=== PATIENT | male | born 1930 | race Caucasian/White ===

== ENCOUNTER 2018-08-02 22:20 | Inpatient (IN) | payer MEDICARE ==
[2018-08-02] MEDS ORDERED: Water For Inject, Bacteriostat 30 ML ONE (23:56)
[2018-08-02] MEDS ORDERED: methylPREDNISolone Sod Succ/PF 125 MG/2 ML VIAL ONE (23:56)
[2018-08-03] MEDS ORDERED: Acetaminophen 325 MG TAB PO PRN (03:07)
[2018-08-03] MEDS ORDERED: Ondansetron PF 4 MG/2 ML Vial IVP PRN (03:07)
[2018-08-03] MEDS ORDERED: Ondansetron ODT 4 MG TAB SL PRN (03:07)
[2018-08-03] MEDS: cefTRIAXone\\ROCEPHIN 1 GM in Sodium Chloride 0.9% 100 ML IVPB SCH (03:28)
[2018-08-03] MEDS: Sodium Chloride 0.9% 1,000 ML IV SCH ×4 (03:28→21:31)
[2018-08-03 03:41] VITALS: BMI 29.5
[2018-08-03] MEDS ORDERED: Non-Formulary Item 1 EACH (Fluticasone/Salmeterol [Advair Diskus 250/50] 1 EACH) IH PRN (04:00)
[2018-08-03] MEDS ORDERED: Bisacodyl 5 MG TAB PO PRN (04:05)
[2018-08-03] MEDS ORDERED: Senokot S 8.6-50 MG TAB PO PRN (04:05)
[2018-08-03] MEDS ORDERED: Guaifenesin DM 100-10/5 ML UDCUP PO PRN (04:05)
[2018-08-03] MEDS ORDERED: Mometasone/Formoterol 120 PUFF INHALER INH PRN (04:11)
[2018-08-03] MEDS: methylPREDNISolone Sod Succ/PF 125 MG/2 ML VIAL IVP SCH ×2 (05:35→11:51)
--- NOTE | 2018-08-03 05:41 | HP ---
CHIEF COMPLAINT: Cough. HISTORY OF PRESENT ILLNESS: The patient is an 88-year-old male with past medical history of coronary artery disease, status post AICD; benign prostatic hypertrophy; hypertension; prostate CA, status post radiation, treated in 2001; asthma, presenting with productive cough for 1 week. Per the patient, he has been having productive cough for 1 week which has now worsened. The patient states that he had sputum that was thick and was stuck in his throat and he had to cough it up and he kept coughing and his cough was so severe that he felt that he had pulled his abdominal hernia with cough. The patient states that he reached out to his brush cleaner to get refill of antibiotics and prednisone, but he was not successful in trying to get the medication refilled. Therefore, the patient states that pain has become very worse and he can hear himself wheezing and that prompted the ED visit. Per the who was by the bedside, she stated that the patient's temperature was high at 103 that was taken orally and the patient was "not feeling well at all." The patient endorses fever, cough with productive sputum, bilateral lower extremity edema, generalized weakness, but denies chest pain, palpitations, dizziness, nausea, vomiting, dysuria, hematuria, hematochezia, melena. REVIEW OF SYSTEMS: Positive for fever, chills, generalized weakness, dyspnea on exertion, bilateral lower extremity edema, shortness of breath. Otherwise as documented in the HPI. All other systems were reviewed and are negative. PAST MEDICAL HISTORY: Coronary artery disease, status post CABG, status post AICD; hypertension; BPH; prostate cancer, status post radiation in 2001; asthma. FAMILY HISTORY: Reviewed and noncontributory to this visit. PAST SURGICAL HISTORY: Colostomy with reversal; back surgery; CABG, one vessel. PSYCHIATRIC HISTORY: No previous psych history. No history of suicidal ideation. SOCIAL HISTORY: The patient drinks socially. The patient denies illicit drug use. The patient is a former drug user of tobacco. The patient quit more than 10 years ago. ALLERGIES: NO KNOWN DRUG ALLERGIES. CURRENT MEDICATIONS: The patient takes; 1. Allopurinol 300 mg p.o. daily. 2. Glucosamine 500 mg tablet. 3. Ubidecarenone 100 mg. 4. Atorvastatin 80 mg. 5. Calcium carbonate 600 mg tablet. 6. Carvedilol 6.25 mg tablet. 7. Vitamin D3 at 1000 daily. 8. Plavix 75 mg. 9. Fish oil. 10. Advair. 11. Lactobacillus. 12. Magnesium oxide. 13. Sotalol 80 mg tablet. 14. Tamsulosin 0.4 mg. PHYSICAL EXAMINATION: VITAL SIGNS: Blood pressure 101/49, pulse 71, respiratory rate of 20, temperature of 100.0, oxygen saturation is 95% on 2 L. GENERAL: The patient is lying in bed with 2 L of nasal cannula in place. The patient is not in any acute distress. The patient is wheezing. HEENT: Normocephalic and atraumatic. Pupils are equally round and reactive to light. Extraocular movements are intact. No scleral icterus. No conjunctival pallor. Mucous membranes are dry. The patient has 2 L of nasal cannula in his nares. NECK: No JVD can be appreciated. The patient has full range of motion, supple. Trachea is midline. LUNGS: The patient has bilateral anterior lung wheezes at the anterior lung nuñez. On the posterior nuñez, there are crackles that can be heard at the lung bases , at the posterior lungs. CARDIAC: Positive S1 and S2. Regular rate and rhythm. No murmurs, no gallops , no rubs appreciated. ABDOMEN: Obese. Abdomen is soft, nontender, nondistended. No palpable masses. EXTREMITIES: Lower extremities, the patient had bilateral 2+ pitting edema at the lower extremities bilaterally. There is some erythema noted at the right lower extremity. The patient has good strength in the lower extremities, however, per the , the patient is not able to ambulate properly. Upper extremities, the patient 5/5 upper extremity strength and good pulses bilaterally in the upper extremities. NEUROLOGIC: Cranial nerves 2 through 12 grossly intact. No neurologic deficits noted. SKIN: Warm, dry, and intact. PSYCHIATRIC: The patient is alert and oriented x3. Normal affect. IMAGING STUDIES: Radiographs: Chest x-ray that was done showed patchy infiltrates, left lingular lobe pneumothorax, less than 10% on the right. EMERGENCY DEPARTMENT COURSE: The patient was given Zosyn, DuoNeb, Tylenol, Levaquin, and normal saline. LABORATORY DATA: WBC is 11.4, hemoglobin is 11.0, hematocrit is 33.3, RDW is 14.6, platelet count is 138. Sodium is 137, potassium is 4.6, chloride is 105, anion gap of 13, BUN is 41, creatinine is 2.10. AST 14, ALT is 11, total bili is 1.7. ASSESSMENT AND PLAN: This is an 88-year-old male, being admitted for: 1.community-acquired pneumonia. At this point, the patient has been started on antibiotics. We will continue patient on antibiotics. We will continue patient on Tylenol p.r.n. for fever. We will give the patient DuoNeb treatments and we will also give the patient Solu-Medrol since the patient is wheezing bilaterally. 2. 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 The patient has bilateral lower extremity edema. At this point, we will hold off all fluids and we will continue to treat patient's underlying pneumonia which has caused the patient to go into congestive heart failure exacerbation. The patient will benefit from Lasix , however, due to patient's creatinine which is elevated from baseline of 1 to 2.0 , we will hold off all diuresis at this time. 3. Acute on chronic kidney disease likely due to dehydration and intrinsic kidney disease. We have consulted Nephrology at this time. We will follow up with Nephrology regarding the recommendation. We have ordered renal panel, we will follow up with the results. 4. Pneumothorax: will follow up morning xray. 5. History of BPH. We will continue the patient on home medications. 4. Hypertension, currently controlled. We will continue the patient on home medications. 6. History of coronary artery disease. We will continue the patient on his home medications. 7. History of asthma. At this point, the patient is wheezing bilaterally. We will start the patient on Solu-Medrol. We will continue DuoNebs. We will monitor the patient. We have consulted Pulmonology. We will follow up with their recommendations. 8. Gastrointestinal and deep venous thrombosis prophylaxis. Job ID: [id number] [facility]
[2018-08-03] MEDS: Clopidogrel Bisulfate 75 MG TAB PO SCH (09:34)
[2018-08-03] MEDS: Fish Oil 1,000 MG CAP PO SCH (09:34)
[2018-08-03] MEDS: Atorvastatin Calcium 40 MG TAB PO SCH (09:34)
[2018-08-03] MEDS: Sotalol HCl 80 MG TAB PO SCH ×2 (09:34→21:25)
[2018-08-03] MEDS: Calcium Carbonate 600 MG TAB PO SCH (09:35)
[2018-08-03] MEDS: Heparin 5,000 UNITS/ML VIAL SC SCH ×2 (09:35→21:26)
[2018-08-03] MEDS: Carvedilol 6.25 MG TAB PO SCH ×2 (09:35→21:25)
[2018-08-03] MEDS: Magnesium Oxide 400 MG TAB PO SCH (09:35)
[2018-08-03] MEDS: Tamsulosin HCl 0.4 MG CAP PO SCH (09:35)
[2018-08-03] MEDS: Famotidine/PF 20 mg/2ml Vial SLOW IVP SCH ×2 (09:35→21:26)
[2018-08-03] MEDS: Famotidine 20 MG TAB PO SCH ×2 (09:35→21:25)
[2018-08-03] MEDS: Lactinex Tablet PO SCH (09:36)
[2018-08-03] MEDS: Azithromycin 500 MG in Sodium Chloride 0.9% 250 ML 250 ML IVPB SCH (09:36)
--- NOTE | 2018-08-03 10:01 | PQF ---
CLINICAL DOCUMENTATION IMPROVEMENT CLARIFICATION FORM: ICD-10 Updated PLEASE DO AN ADDENDUM TO THE PROGRESS NOTE WITH ANY DOCUMENTATION UPDATES OR ADDITIONS AND CARRY THROUGH TO DC SUMMARY. THANK YOU. DATE: 08/03/18 ATTN: DR. NIELSEN Please exercise your independent, professional judgment in responding to the clarification form. Clinical indicators are provided on the bottom of this form for your review Please check appropriate box(s) to clarify if the following diagnosis has been ruled in or ruled out: "SEPSIS" [ ] Ruled in diagnosis [ ] Continue to treat [ ] Resolved [ ] Ruled out diagnosis [ ] Cannot rule out diagnosis [ ] Other diagnosis [ ] Unable to determine In addition, please specify: Present on Admission (POA): [ ] Yes [ ] No [ ] Unable to determine For continuity of documentation, please document condition throughout progress notes and discharge summary. Thank You. CLINICAL INDICATORS - SIGNS / SYMPTOMS / LABS ER NOTE: "SEPSIS" " REPORTS PT. INITIALLY HAD A TEMP OF 103 AND WAS PALE WHITE." (ER NOTE) RR 22 RISKS: PNEUMONIA TREATMENT: IV VANCOMYCIN (ER) IV METHYLPREDISOLONE (ER-PRESENT) IV FLUIDS (ER-PRESENT) IV ROCEPHIN (STARTED 08/03) IV ZITHROMAX (STARTED 08/03) (This form is maintained as a part of the permanent medical record) 2014 [employer] All Rights Reserved KRYSTAL [email or web address] Office: [phone] MTDD
--- NOTE | 2018-08-03 15:08 | PDOC.PN ---
- Subjective Encounter Start Date: 08/03/18 Encounter Start Time: 08:20 Pt seen for followup re: sepsis. Reports cough, clear sputum. No fevers. - Objective Resuscitation Status - Order Detail: 08/03/18 04:05 Resuscitation Status Routine Resuscitation Status: FULL: Full Resuscitation MAR Reviewed: Yes Vital Signs & Weight: Vital Signs (12 hours) Temp Pulse Resp BP Pulse Ox 08/03/18 12:46 97.5 F L 70 16 115/55 L 94 L 08/03/18 09:34 70 08/03/18 08:29 97.2 F L 70 17 128/65 93 L 08/03/18 08:00 94 L 08/03/18 07:11 69 16 93 L 08/03/18 05:05 97.6 F 70 18 120/61 94 L Weight Admit Weight 205 lb 8 oz Weight 205 lb 8 oz I&O: 08/02/18 08/03/18 08/04/18 06:59 06:59 06:59 Intake Total 375 Output Total 625 Balance -250 EKG Reviewed by me: Yes (Tele: NSR) Phys Exam - Physical Examination Constitutional: NAD HEENT: moist MMs, sclera anicteric, oral pharynx no lesions, 2+ tonsils Neck: no nodes, no JVD, supple, full ROM Respiratory: wheezing present Cardiovascular: RRR, no rub S1, S2 Gastrointestinal: soft, non-tender, no distention, positive bowel sounds Neurological: moves all 4 limbs Psychiatric: normal affect Deviation from normal: Oriented to person and place, not to time Dx/Plan (1) Sepsis Code(s): A41.9 - SEPSIS, UNSPECIFIED ORGANISM Status: Acute Comment: likely secondary to acute bronchitis. No clear evidence of pneumonia. Present on admission. (2) Acute bronchitis Code(s): J20.9 - ACUTE BRONCHITIS, UNSPECIFIED Status: Chronic Comment: continue antibiotics as below (3) NATASHA (acute kidney injury) Code(s): N17.9 - ACUTE KIDNEY FAILURE, UNSPECIFIED Status: Chronic Comment: provide gentle hydration, recheck labs (4) HTN (hypertension) Code(s): I10 - ESSENTIAL (PRIMARY) HYPERTENSION Status: Chronic Comment: controlled (5) BPH (benign prostatic hyperplasia) Code(s): N40.0 - BENIGN PROSTATIC HYPERPLASIA WITHOUT LOWER URINRY TRACT SYMP Status: Chronic Comment: stable (6) CAD (coronary artery disease) Code(s): I25.10 - ATHSCL HEART DISEASE OF [place] CORONARY ARTERY W/O ANG PCTRS Status: Chronic Comment: stable - Plan * . Review of Systems - Review of Systems Constitutional: weakness. negative: fever, chills, sweats, malaise Respiratory: Cough, Sputum. negative: Shortness of Breath, SOB with Excertion, Pleuritic Pain, Wheezing Cardiovascular: negative: chest pain, palpitations, orthopnea, paroxysmal nocturnal dyspnea, edema, light headedness Gastrointestinal: negative: Nausea, Vomiting, Abdominal Pain, Diarrhea, Constipation, Melena, Hematochezia Genitourinary: negative: Dysuria, Frequency, Incontinence, Hematuria, Retention Musculoskeletal: negative: Neck Pain, Shoulder Pain, Arm Pain, Back Pain, Hand Pain, Leg Pain, Foot Pain - Medications/Allergies Allergies/Adverse Reactions: Allergies Allergy/AdvReac Type Severity Reaction Status Date / Time pecan nut Allergy Verified 08/03/18 02:22 ragweed pollen Allergy Verified 08/03/18 02:22 Medications: Current Medications Acidophilus (Floranex) 1 tab PO DAILY [facility] Last Admin: 08/03/18 09:36 Dose: 1 tab Albuterol/Ipratropium (Duoneb) 3 ml NEB [id number] [facility] Last Admin: 08/03/18 13:45 Dose: 3 ml Atorvastatin Calcium (Lipitor) 80 mg PO DAILY [facility] Last Admin: 08/03/18 09:34 Dose: 80 mg Bisacodyl (Dulcolax) 10 mg PO DAILYPRN PRN PRN Reason: Constipation Calcium Carbonate (Caltrate) 600 mg PO DAILY [facility] Last Admin: 08/03/18 09:35 Dose: 600 mg Carvedilol (Coreg) 6.25 mg PO BID [facility] Last Admin: 08/03/18 09:35 Dose: 6.25 mg Cholecalciferol (Vitamin D3) 1,000 units PO DAILY [facility] Last Admin: 08/03/18 09:35 Dose: 1,000 units Clopidogrel Bisulfate (Plavix) 75 mg PO DAILY [facility] Last Admin: 08/03/18 09:34 Dose: 75 mg Famotidine (Pepcid) 20 mg SLOW IVP Q12HR [facility] Last Admin: 08/03/18 09:35 Dose: 20 mg Famotidine (Pepcid) 20 mg PO BID [facility] Last Admin: 08/03/18 09:35 Dose: 20 mg Fish Oil (Fish Oil) 1,000 mg PO DAILY [facility] Last Admin: 08/03/18 09:34 Dose: 1,000 mg Guaifenesin/Dextromethorphan (Robitussin Dm) 15 ml PO Q4H PRN PRN Reason: Cough Heparin Sodium (Porcine) (Heparin) 5,000 units SC BID [facility] Last Admin: 08/03/18 09:35 Dose: 5,000 units Ceftriaxone Sodium 1 gm/ (Sodium Chloride) 100 mls @ 200 mls/hr IVPB Q24HR [facility] Last Admin: 08/03/18 03:28 Dose: 100 mls Azithromycin 500 mg/ Sodium (Chloride) 250 mls @ 250 mls/hr IVPB DAILY [facility] Last Admin: 08/03/18 09:36 Dose: 250 mls Magnesium Oxide (Magnesium Oxide) 400 mg PO DAILY [facility] Last Admin: 08/03/18 09:35 Dose: 400 mg Methylprednisolone Sodium Succinate (Solu-Medrol) 80 mg IVP Q6HR [facility] Last Admin: 08/03/18 11:51 Dose: 80 mg Miscellaneous Medication (Pharmacy To Dose) 1 each IVPB ONE PRN PRN Reason: ROCEPHIN/AZITHROMYCIN Pharmacy Stop: 08/03/18 23:59 Mometasone Furoate/Formoterol Fumar (Dulera 200 Mcg/5 Mcg Inhaler) 2 puff INH BIDPRN PRN PRN Reason: SOB &/or Wheezing Pneumococcal 13-Valent Conj Vacc (Prevnar) 0.5 ml IM .ONCE ONE Stop: 08/04/18 09:01 Senna/Docusate Sodium (Senokot S) 2 tab PO BIDPRN PRN PRN Reason: Constipation Sodium Chloride (Flush - Normal Saline) 10 ml IVF Q12HR [facility] Last Admin: 08/03/18 09:36 Dose: Not Given Sodium Chloride (Flush - Normal Saline) 10 ml IVF PRN PRN PRN Reason: Saline Flush Sotalol HCl (Betapace) 80 mg PO BID [facility] Last Admin: 08/03/18 09:34 Dose: 80 mg Tamsulosin HCl (Flomax) 0.4 mg PO DAILY [facility] Last Admin: 08/03/18 09:35 Dose: 0.4 mg
--- NOTE | 2018-08-03 20:54 | CON ---
DATE OF CONSULTATION: 08/03/2018 This consultation encompassed 70 minutes of time including more than half of that time spent at the patient's bedside and/or on the patient's unit in the hospital. REASON FOR CONSULTATION: Pneumonia. HISTORY OF PRESENT ILLNESS: Mr. Javier is an 88-year-old male, who is a patient of my partner, Dr. Tracey. He began having cough and congestion about 5 days ago. He presented to an [facility] emergency room yesterday, and I am told that his temperature was at 103. He had been producing mucoid secretions. He was put on antibiotics, IV fluids, breathing treatments, and states that he feels better this morning. His history and physical states that he had an infiltrate on his x-ray and a pneumothorax. I see neither on his x-ray and that is supported by the radiologist's report. PAST MEDICAL HISTORY: 1. Coronary artery disease. 2. Chronic obstructive pulmonary disease. 3. PHI, requiring CPAP. 4. AICD placement. 5. Hypertension. 6. Coronary artery bypass grafting surgery. 7. Prostate cancer. 8. Radiation treatment for prostate cancer. PAST SURGICAL HISTORY: 1. Colostomy with reversal. 2. CABG. 3. Back surgery. FAMILY MEDICAL HISTORY: Unremarkable. SOCIAL HISTORY: Drinks socially. He quit smoking more than 10 years ago. Lives at home with his . ALLERGIES: NONE. MEDICATIONS: Prior to admission, he had just called the office for a prednisone taper, but I do not think he was taking that. He has not been taking any antibiotics as an outpatient. 1. Allopurinol 300 mg daily. 2. Glucosamine 500 mg daily. 3. Ubidecarenone 100 mg daily. 4. Atorvastatin 80 mg daily. 5. Calcium carbonate 600 mg daily. 6. Carvedilol 6.25 mg b.i.d. 7. Vitamin daily. 8. Plavix 75 mg daily. 9. Advair 250 mcg 1 puff twice daily. 10. Lactobacillus. 11. Magnesium oxide. 12. Sotalol 80 mg twice daily. 13. Tamsulosin 0.4 mg daily. REVIEW OF SYSTEMS: Twelve-point review of systems otherwise negative. PHYSICAL EXAMINATION: VITAL SIGNS: Temperature 97.2, pulse 70, respirations 17, O2 sat 93% on 2 L, and blood pressure 128/65. GENERAL: He is awake, alert, and in no distress. HEENT: Pupils reactive. Sclerae anicteric. Oropharynx clear. NECK: Without adenopathy or JVD. LUNGS: I did not hear any wheezing or rhonchi on exam this morning. CARDIAC: S1 and S2 regular without murmur. ABDOMEN: Soft, nontender, and nondistended. EXTREMITIES: No clubbing, cyanosis, or edema. NEUROLOGIC: Grossly intact throughout. LABORATORY DATA: Procalcitonin level is 4.7, which is elevated. White blood cell count 11.4, hematocrit 33.3, platelet count 138 with 70% neutrophils, 1% band. Sodium 137, potassium 4.6, chloride 105, BUN 41, creatinine 2.1, and glucose 151. DIAGNOSTIC STUDIES: Chest x-ray was reviewed. It shows a small right pleural effusion. He has post-sternotomy wires. I do not see any infiltrate, no pneumothorax. ASSESSMENT: 1. Asthmatic bronchitis/chronic obstructive pulmonary disease with exacerbation. 2. Possible pneumonia, although not supported on the x-ray at current time. 3. Prerenal azotemia. RECOMMENDATIONS: 1. Agree with treatment with the Rocephin and Zithromax, breathing treatments, IV fluids, and IV steroids. 2. Further orders will be given depending on the patient's hospital course. 3. We would suggest at least cutting his dose of steroids in half, maybe to 40 mg IV every 6 hours. Job ID: [id number]
--- NOTE | 2018-08-03 23:01 | CON ---
DATE OF CONSULTATION: 08/03/2018 TYPE OF CONSULTATION: Nephrology. CONSULTING PHYSICIAN: Dr. Lu. REASON FOR CONSULTATION: Acute kidney injury. REASON FOR ADMISSION: Cough. HISTORY OF PRESENT ILLNESS: An 88-year-old white male with history of coronary artery disease, CKD, hypertension, and BPH, came to the hospital with the above complaints. Nephrology was consulted for elevated creatinine. His creatinine was found to be around 2. No fevers or chills. No nausea or vomiting. He has been having cough. PAST MEDICAL HISTORY: Positive for coronary artery disease, CABG, hypertension, BPH, prostate cancer, and asthma. PAST SURGICAL HISTORY: Colostomy, CABG, and back surgery. HOME MEDICATIONS: 1. Allopurinol. 2. Glucosamine. 3. Atorvastatin. 4. Calcium carbonate. 5. Carvedilol. 6. Vitamin D3. 7. Plavix. 8. Fish oil. 9. Advair. 10. Lactobacillus. 11. Magnesium oxide. 12. Sotalol. 13. Tamsulosin. ALLERGIES: NO KNOWN DRUG ALLERGIES. SOCIAL HISTORY: No smoking, alcohol, or illicit drug abuse. Drunk socially. Former tobacco use. FAMILY HISTORY: No history of kidney disease. REVIEW OF SYSTEMS: CONSTITUTIONAL: Negative for weight loss or gain, ability to conduct usual activities. SKIN: Negative for rash, itching. EYES: Negative for double vision, pain. ENT/MOUTH: Negative for nose bleeding, neck stiffness, pain, tenderness. CARDIOVASCULAR: Negative for palpitations, dyspnea on exertion, orthopnea. RESPIRATORY: Negative for shortness of breath, wheezing, cough, hemoptysis, fever or night sweats. GASTROINTESTINAL: Negative for poor appetite, abdominal pain, heartburn, nausea, vomiting, constipation, or diarrhea. GENITOURINARY: Negative for urgency, frequency, dysuria, nocturia. MUSCULOSKELETAL: Negative for pain, swelling. NEUROLOGIC/PSYCHIATRIC: Negative for anxiety, depression. ALLERGY/IMMUNOLOGIC: Negative for skin rash, bleeding tendency. PHYSICAL EXAMINATION: GENERAL: Reveals an obese male, in no apparent distress. VITAL SIGNS: Temperature 97.5, pulse 70, respiration 16, and blood pressure 115/55. LABORATORY DATA: Creatinine of 2.1, GFR of 30, potassium of 3.9. Hemoglobin of 11.7. ASSESSMENT AND PLAN: 1. Acute kidney injury on chronic kidney disease stage 3. We will monitor renal function. Most likely from sepsis and hypovolemia. 2. Avoid nephrotoxins and hydrate as tolerated. 3. Anemia, mild. 4. Edema, controlled. 5. We will continue to monitor, avoid nephrotoxins. Job ID: [id number]
[2018-08-04] MEDS: cefTRIAXone\\ROCEPHIN 1 GM in Sodium Chloride 0.9% 100 ML IVPB SCH (03:32)
[2018-08-04 06:17] LABS: #Lymphocytes 0.5 thou/uL (1.20-3.40); #Monocytes 0.6 thou/uL (0.11-0.59); #Neutrophils 14.1 thou/uL (1.40-6.50); %Basophils 0.1 % (0.0-1.0); %Lymphocytes 3.1 % (21.0-51.0); %Monocytes 3.7 % (0.0-10.0); %Neutrophils 93.1 % (42.0-75.0); Hemoglobin 10.2 g/dL (14.0-18.0); Mean Corpuscular HGB CONC 32.3 g/dL (32.0-36.0); Mean Corpuscular Hemoglobin 31.5 pg (27.0-31.0); Mean Corpuscular Volume 97.6 fL (78.0-98.0); Mean Platelet Volume 9.7 fL (7.4-10.4); Platelet Count 147 thou/uL (130-400); RBC Distribution Width 14.2 % (11.5-14.5); Red Blood Cell (RBC) Count 3.24 mill/uL (4.70-6.10); White Blood Cell (WBC) Count 15.1 thou/uL (4.8-10.8)
[2018-08-04 06:30] LABS: Albumin 2.7 g/dL (3.4-4.8); Anion Gap 10 mmol/L (10-20); BUN (Urea Nitrogen) 44 mg/dL (8.4-25.7); BUN/Creatinine Ratio 35.48; Calc. Creatinine Clearance 57 mL/min (70-130); Calcium 8.6 mg/dL (7.8-10.44); Carbon Dioxide 22 mmol/L (23-31); Chloride 108 mmol/L (98-107); Estimated GFR-MDRD 55; Glucose 143 mg/dL (83-110); Phosphorus 2.5 mg/dL (2.3-4.7); Sodium 136 mmol/L (136-145)
[2018-08-04] MEDS ORDERED: Prevnar 13-Val Conj/PF 0.5 ML SYRINGE IM ONE (09:00)
[2018-08-04] MEDS: Sotalol HCl 80 MG TAB PO SCH ×2 (09:25→20:55)
[2018-08-04] MEDS: Calcium Carbonate 600 MG TAB PO SCH (09:26)
[2018-08-04] MEDS: Carvedilol 6.25 MG TAB PO SCH ×2 (09:26→20:55)
[2018-08-04] MEDS: Fish Oil 1,000 MG CAP PO SCH (09:26)
[2018-08-04] MEDS: Tamsulosin HCl 0.4 MG CAP PO SCH (09:26)
[2018-08-04] MEDS: Atorvastatin Calcium 40 MG TAB PO SCH (09:26)
[2018-08-04] MEDS: Clopidogrel Bisulfate 75 MG TAB PO SCH (09:27)
[2018-08-04] MEDS: Magnesium Oxide 400 MG TAB PO SCH (09:27)
[2018-08-04] MEDS: Famotidine 20 MG TAB PO SCH ×2 (09:27→20:55)
[2018-08-04] MEDS: Heparin 5,000 UNITS/ML VIAL SC SCH ×2 (09:29→20:55)
[2018-08-04] MEDS: Famotidine/PF 20 mg/2ml Vial SLOW IVP SCH ×2 (09:29→20:56)
[2018-08-04] MEDS: Lactinex Tablet PO SCH (11:45)
[2018-08-04] MEDS: Azithromycin 500 MG in Sodium Chloride 0.9% 250 ML 250 ML IVPB SCH (11:46)
--- NOTE | 2018-08-04 12:42 | PDOC.PN ---
- Subjective Encounter Start Date: 08/04/18 Encounter Start Time: 07:40 Pt seen for followup re: acute bronchitis. Feels better. Cough still +, less sputum. - Objective Resuscitation Status - Order Detail: 08/03/18 04:05 Resuscitation Status Routine Resuscitation Status: FULL: Full Resuscitation MAR Reviewed: Yes Vital Signs & Weight: Vital Signs (12 hours) Temp Pulse Resp BP BP BP Pulse Ox 08/04/18 09:26 131/60 08/04/18 09:25 70 08/04/18 09:00 70 20 131/61 94 L 08/04/18 08:30 95 08/04/18 07:08 69 18 92 L 08/04/18 04:05 98.2 F 95 18 110/62 92 L Weight Admit Weight 205 lb 8 oz Weight 206 lb 5 oz I&O: 08/03/18 08/04/18 08/05/18 06:59 06:59 06:59 Intake Total 375 2168 240 Output Total 625 1100 Balance -250 1068 240 Result Diagrams: 08/05/18 10:45 08/05/18 10:45 EKG Reviewed by me: Yes (Tele: electronic A-paced) Phys Exam - Physical Examination Constitutional: NAD HEENT: moist MMs Neck: supple Respiratory: wheezing present Cardiovascular: RRR Gastrointestinal: soft Neurological: moves all 4 limbs Psychiatric: normal affect Dx/Plan (1) Acute bronchitis Code(s): J20.9 - ACUTE BRONCHITIS, UNSPECIFIED Status: Acute Comment: will continue antibiotics as below, steroids and PRN O2 (2) HTN (hypertension) Code(s): I10 - ESSENTIAL (PRIMARY) HYPERTENSION Status: Chronic Comment: controlled, continue to monitor vital signs (3) BPH (benign prostatic hyperplasia) Code(s): N40.0 - BENIGN PROSTATIC HYPERPLASIA WITHOUT LOWER URINRY TRACT SYMP Status: Chronic Comment: stable (4) CAD (coronary artery disease) Code(s): I25.10 - ATHSCL HEART DISEASE OF [place] CORONARY ARTERY W/O ANG PCTRS Status: Chronic Comment: stable (5) Sepsis Code(s): A41.9 - SEPSIS, UNSPECIFIED ORGANISM Status: Resolved Comment: likely secondary to acute bronchitis. No clear evidence of pneumonia. Present on admission. (6) NATASHA (acute kidney injury) Code(s): N17.9 - ACUTE KIDNEY FAILURE, UNSPECIFIED Status: Resolved - Plan * . Review of Systems - Review of Systems Respiratory: Cough, Sputum. negative: Dry, Shortness of Breath, Hemoptysis, SOB with Excertion, Pleuritic Pain, Wheezing Cardiovascular: negative: chest pain, palpitations, orthopnea, paroxysmal nocturnal dyspnea, edema, light headedness - Medications/Allergies Allergies/Adverse Reactions: Allergies Allergy/AdvReac Type Severity Reaction Status Date / Time pecan nut Allergy Verified 08/03/18 02:22 ragweed pollen Allergy Verified 08/03/18 02:22 Medications: Current Medications Acidophilus (Floranex) 1 tab PO DAILY [facility] Last Admin: 08/04/18 11:45 Dose: 1 tab Albuterol/Ipratropium (Duoneb) 3 ml NEB [id number] [facility] Last Admin: 08/04/18 07:08 Dose: 3 ml Atorvastatin Calcium (Lipitor) 80 mg PO DAILY [facility] Last Admin: 08/04/18 09:26 Dose: 80 mg Bisacodyl (Dulcolax) 10 mg PO DAILYPRN PRN PRN Reason: Constipation Calcium Carbonate (Caltrate) 600 mg PO DAILY [facility] Last Admin: 08/04/18 09:26 Dose: 600 mg Carvedilol (Coreg) 6.25 mg PO BID [facility] Last Admin: 08/04/18 09:26 Dose: 6.25 mg Cholecalciferol (Vitamin D3) 1,000 units PO DAILY [facility] Last Admin: 08/04/18 09:27 Dose: 1,000 units Clopidogrel Bisulfate (Plavix) 75 mg PO DAILY [facility] Last Admin: 08/04/18 09:27 Dose: 75 mg Famotidine (Pepcid) 20 mg SLOW IVP Q12HR [facility] Last Admin: 08/04/18 09:29 Dose: Not Given Famotidine (Pepcid) 20 mg PO BID [facility] Last Admin: 08/04/18 09:27 Dose: 20 mg Fish Oil (Fish Oil) 1,000 mg PO DAILY [facility] Last Admin: 08/04/18 09:26 Dose: 1,000 mg Guaifenesin/Dextromethorphan (Robitussin Dm) 15 ml PO Q4H PRN PRN Reason: Cough Heparin Sodium (Porcine) (Heparin) 5,000 units SC BID [facility] Last Admin: 08/04/18 09:29 Dose: 5,000 units Ceftriaxone Sodium 1 gm/ (Sodium Chloride) 100 mls @ 200 mls/hr IVPB Q24HR [facility] Last Admin: 08/04/18 03:32 Dose: 100 mls Azithromycin 500 mg/ Sodium (Chloride) 250 mls @ 250 mls/hr IVPB DAILY [facility] Last Admin: 08/04/18 11:46 Dose: 250 mls Sodium Chloride (Normal Saline 0.9%) 1,000 mls @ 50 mls/hr IV .Q20H [facility] Last Admin: 08/03/18 21:31 Dose: 1,000 mls Magnesium Oxide (Magnesium Oxide) 400 mg PO DAILY [facility] Last Admin: 08/04/18 09:27 Dose: 400 mg Methylprednisolone Sodium Succinate (Solu-Medrol) 40 mg IVP Q6HR [facility] Last Admin: 08/04/18 05:40 Dose: 40 mg Mometasone Furoate/Formoterol Fumar (Dulera 200 Mcg/5 Mcg Inhaler) 2 puff INH BIDPRN PRN PRN Reason: SOB &/or Wheezing Senna/Docusate Sodium (Senokot S) 2 tab PO BIDPRN PRN PRN Reason: Constipation Sodium Chloride (Flush - Normal Saline) 10 ml IVF Q12HR [facility] Last Admin: 08/03/18 21:26 Dose: Not Given Sodium Chloride (Flush - Normal Saline) 10 ml IVF PRN PRN PRN Reason: Saline Flush Sotalol HCl (Betapace) 80 mg PO BID [facility] Last Admin: 08/04/18 09:25 Dose: 80 mg Tamsulosin HCl (Flomax) 0.4 mg PO DAILY [facility] Last Admin: 08/04/18 09:26 Dose: 0.4 mg
--- NOTE | 2018-08-04 14:08 | PRG ---
DATE OF SERVICE: 08/04/2018 SUBJECTIVE: The patient is doing better. He had no acute complaints. He had urinary retention last night that was helped with a Galo catheter. OBJECTIVE: VITAL SIGNS: On exam, his temperature 97.4, pulse 71, respirations 16, O2 saturation 95% on room air, blood pressure 127/66. HEENT: Unremarkable. NECK: No JVD. LUNGS: Clear without wheezing or rhonchi. CARDIAC: S1 and S2, regular. ABDOMEN: Soft. EXTREMITIES: No edema. ASSESSMENT: Asthmatic bronchitis that is improved with steroids, antibiotics, and nebulization treatments. PLAN: Continue current treatment. He could probably go home tomorrow if he does well today. Job ID: [id number]
--- NOTE | 2018-08-04 21:00 | PRG ---
DATE OF SERVICE: 08/04/2018 SUBJECTIVE: Patient was seen and examined at bedside and overnight events noted. Patient denies any shortness of breath or chest pain or palpitation. No history of nausea or vomiting or diarrhea or fever or chills or cramps. OBJECTIVE: GENERAL: This is a well-built male, in no apparent distress. VITAL SIGNS: Temperature 97.4, pulse 71, respirations 16, blood pressure HEENT: Atraumatic, normocephalic. Oral mucosa is moist NECK: Supple. CARDIOVASCULAR: S1, S2 heard. Rate and rhythm regular. RESPIRATORY: Clear to auscultation. GASTROINTESTINAL: Abdomen is soft. MUSCULOSKELETAL: No tenderness. No edema. DERMATOLOGIC: No skin rash. NEUROLOGIC: Alert and awake and oriented X3. No focal neurologic deficits. Moving all the extremities. PSYCHIATRIC: Mood and affect normal. LABORATORY DATA: Potassium is 4.0 and creatinine is 1.2. ASSESSMENT AND PLAN: 1. Acute kidney injury on chronic kidney disease stage 3, stable. 2. Anemia. 3. Edema, controlled. 4. Hypertension, monitor. 5. Avoid nephrotoxins. We will follow. Job ID: [id number]
[2018-08-05] MEDS: Sodium Chloride 0.9% 1,000 ML IV SCH (05:31)
[2018-08-05] MEDS: cefTRIAXone\\ROCEPHIN 1 GM in Sodium Chloride 0.9% 100 ML IVPB SCH (05:31)
[2018-08-05] MEDS: Clopidogrel Bisulfate 75 MG TAB PO SCH (09:13)
[2018-08-05] MEDS: Famotidine 20 MG TAB PO SCH ×2 (09:14→20:34)
[2018-08-05] MEDS: Tamsulosin HCl 0.4 MG CAP PO SCH (09:14)
[2018-08-05] MEDS: Fish Oil 1,000 MG CAP PO SCH (09:14)
[2018-08-05] MEDS: Calcium Carbonate 600 MG TAB PO SCH (09:15)
[2018-08-05] MEDS: Carvedilol 6.25 MG TAB PO SCH ×2 (09:15→20:34)
[2018-08-05] MEDS: Sotalol HCl 80 MG TAB PO SCH ×2 (09:15→20:34)
[2018-08-05] MEDS: Magnesium Oxide 400 MG TAB PO SCH (09:15)
[2018-08-05] MEDS: Lactinex Tablet PO SCH (09:15)
[2018-08-05] MEDS: Heparin 5,000 UNITS/ML VIAL SC SCH ×2 (09:16→20:35)
[2018-08-05] MEDS: Azithromycin 500 MG in Sodium Chloride 0.9% 250 ML 250 ML IVPB SCH (09:16)
[2018-08-05] MEDS: Famotidine/PF 20 mg/2ml Vial SLOW IVP SCH (09:17)
[2018-08-05] MEDS: Atorvastatin Calcium 40 MG TAB PO SCH (09:24)
[2018-08-05 11:07] LABS: Hemoglobin 10.2 g/dL (14.0-18.0); Mean Corpuscular Hemoglobin 31.2 pg (27.0-31.0); Mean Corpuscular Volume 94.6 fL (78.0-98.0); Mean Platelet Volume 9.7 fL (7.4-10.4); Platelet Count 175 thou/uL (130-400); RBC Distribution Width 14.1 % (11.5-14.5); Red Blood Cell (RBC) Count 3.27 mill/uL (4.70-6.10)
[2018-08-05 11:21] LABS: Anion Gap 13 mmol/L (10-20); BUN (Urea Nitrogen) 49 mg/dL (8.4-25.7); Calc. Creatinine Clearance 59 mL/min (70-130); Calcium 8.6 mg/dL (7.8-10.44); Carbon Dioxide 21 mmol/L (23-31); Estimated GFR-MDRD 58; Glucose 176 mg/dL (83-110)
[2018-08-05 11:24] LABS: Chloride 107 mmol/L (98-107); Potassium 4.2 mmol/L (3.5-5.1); Sodium 137 mmol/L (136-145)
[2018-08-05 11:58] LABS: Band 4 % (5-11); Lymphocytes 2 % (21-51); MDiff Complete? YES; Monocytes 3 % (0-10); Neutrophil 91 % (42-75)
[2018-08-05] MEDS ORDERED: Cefdinir 300 MG CAP PO SCH (14:15)
--- NOTE | 2018-08-05 14:15 | PDOC.PN ---
- Subjective Encounter Start Date: 08/05/18 Encounter Start Time: 14:13 Pt seen for followup re: bronchitis. Feels better. - Objective Resuscitation Status - Order Detail: 08/03/18 04:05 Resuscitation Status Routine Resuscitation Status: FULL: Full Resuscitation Vital Signs & Weight: Vital Signs (12 hours) Temp Pulse Resp BP BP BP Pulse Ox 08/05/18 12:30 97.6 F 69 16 154/78 H 91 L 08/05/18 09:15 66 177/81 H 08/05/18 09:00 97.4 F L 66 16 177/81 H 94 L 08/05/18 06:45 92 L 08/05/18 06:42 69 16 08/05/18 04:00 97.5 F L 73 16 155/78 H 92 L Weight Admit Weight 205 lb 8 oz Weight 206 lb 9 oz I&O: 08/04/18 08/05/18 08/06/18 06:59 06:59 06:59 Intake Total 2168 2348 360 Output Total 1100 1575 Balance 1068 773 360 Result Diagrams: 08/06/18 05:36 08/06/18 05:36 Phys Exam - Physical Examination Constitutional: NAD HEENT: moist MMs Neck: supple Respiratory: clear to auscultation bilateral Cardiovascular: RRR Gastrointestinal: soft Neurological: moves all 4 limbs Psychiatric: normal affect Dx/Plan (1) Acute bronchitis Code(s): J20.9 - ACUTE BRONCHITIS, UNSPECIFIED Status: Acute Comment: Improved,will switch to oral antibiotics (2) HTN (hypertension) Code(s): I10 - ESSENTIAL (PRIMARY) HYPERTENSION Status: Chronic Comment: controlled (3) BPH (benign prostatic hyperplasia) Code(s): N40.0 - BENIGN PROSTATIC HYPERPLASIA WITHOUT LOWER URINRY TRACT SYMP Status: Chronic Comment: stable (4) CAD (coronary artery disease) Code(s): I25.10 - ATHSCL HEART DISEASE OF [place] CORONARY ARTERY W/O ANG PCTRS Status: Chronic Comment: stable (5) Sepsis Code(s): A41.9 - SEPSIS, UNSPECIFIED ORGANISM Status: Resolved Comment: likely secondary to acute bronchitis. No clear evidence of pneumonia. Present on admission. (6) NATASHA (acute kidney injury) Code(s): N17.9 - ACUTE KIDNEY FAILURE, UNSPECIFIED Status: Resolved - Plan * . Review of Systems - Review of Systems Respiratory: Cough, Dry. negative: Shortness of Breath, Hemoptysis, SOB with Excertion, Pleuritic Pain, Sputum, Wheezing Cardiovascular: negative: chest pain, palpitations, orthopnea, paroxysmal nocturnal dyspnea, edema, light headedness - Medications/Allergies Allergies/Adverse Reactions: Allergies Allergy/AdvReac Type Severity Reaction Status Date / Time pecan nut Allergy Verified 08/03/18 02:22 ragweed pollen Allergy Verified 08/03/18 02:22 Medications: Current Medications Acidophilus (Floranex) 1 tab PO DAILY [facility] Last Admin: 08/05/18 09:15 Dose: 1 tab Albuterol/Ipratropium (Duoneb) 3 ml NEB [id number] [facility] Last Admin: 08/05/18 06:42 Dose: 3 ml Atorvastatin Calcium (Lipitor) 80 mg PO HS [facility] Bisacodyl (Dulcolax) 10 mg PO DAILYPRN PRN PRN Reason: Constipation Calcium Carbonate (Caltrate) 600 mg PO DAILY [facility] Last Admin: 08/05/18 09:15 Dose: 600 mg Carvedilol (Coreg) 6.25 mg PO BID [facility] Last Admin: 08/05/18 09:15 Dose: 6.25 mg Cefdinir (Omnicef) 300 mg PO BID [facility] Cefdinir (Omnicef) 300 mg PO ONE [facility] Cholecalciferol (Vitamin D3) 1,000 units PO DAILY [facility] Last Admin: 08/05/18 09:16 Dose: 1,000 units Clopidogrel Bisulfate (Plavix) 75 mg PO DAILY [facility] Last Admin: 08/05/18 09:13 Dose: 75 mg Famotidine (Pepcid) 20 mg SLOW IVP Q12HR [facility] Last Admin: 08/05/18 09:17 Dose: Not Given Famotidine (Pepcid) 20 mg PO BID [facility] Last Admin: 08/05/18 09:14 Dose: 20 mg Fish Oil (Fish Oil) 1,000 mg PO DAILY [facility] Last Admin: 08/05/18 09:14 Dose: 1,000 mg Guaifenesin/Dextromethorphan (Robitussin Dm) 15 ml PO Q4H PRN PRN Reason: Cough Heparin Sodium (Porcine) (Heparin) 5,000 units SC BID [facility] Last Admin: 08/05/18 09:16 Dose: 5,000 units Sodium Chloride (Normal Saline 0.9%) 1,000 mls @ 50 mls/hr IV .Q20H [facility] Last Admin: 08/05/18 05:31 Dose: 1,000 mls Magnesium Oxide (Magnesium Oxide) 400 mg PO DAILY [facility] Last Admin: 08/05/18 09:15 Dose: 400 mg Mometasone Furoate/Formoterol Fumar (Dulera 200 Mcg/5 Mcg Inhaler) 2 puff INH BIDPRN PRN PRN Reason: SOB &/or Wheezing Prednisone (Prednisone) 20 mg PO BID[facility] Senna/Docusate Sodium (Senokot S) 2 tab PO BIDPRN PRN PRN Reason: Constipation Sodium Chloride (Flush - Normal Saline) 10 ml IVF Q12HR [facility] Last Admin: 08/05/18 09:24 Dose: Not Given Sodium Chloride (Flush - Normal Saline) 10 ml IVF PRN PRN PRN Reason: Saline Flush Sotalol HCl (Betapace) 80 mg PO BID [facility] Last Admin: 08/05/18 09:15 Dose: 80 mg Tamsulosin HCl (Flomax) 0.4 mg PO DAILY [facility] Last Admin: 08/05/18 09:14 Dose: 0.4 mg
[2018-08-05] MEDS: predniSONE 20 MG TAB PO SCH (17:36)
[2018-08-05] MEDS: Cefdinir 300 MG CAP PO SCH (20:34)
[2018-08-05] MEDS ORDERED: Atorvastatin Calcium 40 MG TAB PO SCH (21:00)
[2018-08-06] MEDS: Famotidine/PF 20 mg/2ml Vial SLOW IVP SCH ×2 (02:28→10:17)
[2018-08-06 06:36] LABS: Hemoglobin 10.9 g/dL (14.0-18.0); Mean Corpuscular HGB CONC 32.6 g/dL (32.0-36.0); Mean Corpuscular Hemoglobin 31.4 pg (27.0-31.0); Mean Corpuscular Volume 96.3 fL (78.0-98.0); Mean Platelet Volume 9.8 fL (7.4-10.4); Platelet Count 188 thou/uL (130-400); RBC Distribution Width 14.1 % (11.5-14.5); Red Blood Cell (RBC) Count 3.46 mill/uL (4.70-6.10); White Blood Cell (WBC) Count 12.6 thou/uL (4.8-10.8)
[2018-08-06 06:52] LABS: Band 10 % (5-11); Lymphocytes 6 % (21-51); MDiff Complete? YES; Monocytes 6 % (0-10); Neutrophil 78 % (42-75); PLT Morphology Comment Appears Adequate
[2018-08-06 07:03] LABS: Anion Gap 12 mmol/L (10-20); BUN (Urea Nitrogen) 39 mg/dL (8.4-25.7); Calc. Creatinine Clearance 74 mL/min (70-130); Carbon Dioxide 22 mmol/L (23-31); Chloride 107 mmol/L (98-107); Estimated GFR-MDRD 76; Glucose 137 mg/dL (83-110); Potassium 3.8 mmol/L (3.5-5.1); Sodium 137 mmol/L (136-145)
--- NOTE | 2018-08-06 07:49 | PRG ---
DATE OF SERVICE: 08/05/2018 SUBJECTIVE: Patient was seen and examined at bedside and overnight events noted. Patient denies any shortness of breath or chest pain or palpitation. No history of nausea or vomiting or diarrhea or fever or chills or cramps. OBJECTIVE: GENERAL: This is a well-built male, in no apparent distress. VITAL SIGNS: Temperature 97.4. Heart rate 66. Respiratory rate 18. Blood pressure 177/81. HEENT: Atraumatic, normocephalic. Oral mucosa is moist NECK: Supple. CARDIOVASCULAR: S1, S2 heard. Rate and rhythm regular. RESPIRATORY: Clear to auscultation. GASTROINTESTINAL: Abdomen is soft. MUSCULOSKELETAL: No tenderness. No edema. DERMATOLOGIC: No skin rash. NEUROLOGIC: Alert and awake and oriented X3. No focal neurologic deficits. Moving all the extremities. PSYCHIATRIC: Mood and affect normal. LABORATORY DATA: Creatinine is 1.1, potassium is 4.3. ASSESSMENT AND PLAN: 1. Acute kidney injury on chronic kidney disease stage 3, stable. 2. Anemia. 3. Edema. 4. Hypertension. 5. Avoid nephrotoxins. We will monitor labs. I will sign off, please call back with any questions. Job ID: [id number]
--- NOTE | 2018-08-06 07:49 | PRG ---
DATE OF SERVICE: 08/05/2018 SUBJECTIVE: The patient appears to be doing well. He had no acute complaints. OBJECTIVE: VITAL SIGNS: Temperature 97.5, pulse 66, blood pressure 177/81, O2 saturation 92% on room air. HEENT: Unremarkable. NECK: No JVD. LUNGS: Few end-expiratory wheezes. CARDIAC: S1, S2 regular. ABDOMEN: Soft. EXTREMITIES: No edema. ASSESSMENT: 1. Asthmatic bronchitis. 2. Urinary retention. PLAN: The patient is close to medical discharge. I will go ahead and switch him over to oral steroids. He will continue his breathing treatments and antibiotics. He wants his Galo catheter out. I will leave that issue up to the hospitalist who requested the insertion in the first place. Job ID: [id number]
[2018-08-06] MEDS: Tamsulosin HCl 0.4 MG CAP PO SCH (10:15)
[2018-08-06] MEDS: Sotalol HCl 80 MG TAB PO SCH (10:15)
[2018-08-06] MEDS: Lactinex Tablet PO SCH (10:15)
[2018-08-06] MEDS: predniSONE 20 MG TAB PO SCH (10:15)
[2018-08-06] MEDS: Clopidogrel Bisulfate 75 MG TAB PO SCH (10:15)
[2018-08-06] MEDS: Famotidine 20 MG TAB PO SCH (10:15)
[2018-08-06] MEDS: Magnesium Oxide 400 MG TAB PO SCH (10:16)
[2018-08-06] MEDS: Cefdinir 300 MG CAP PO SCH (10:16)
[2018-08-06] MEDS: Carvedilol 6.25 MG TAB PO SCH (10:16)
[2018-08-06] MEDS: Calcium Carbonate 600 MG TAB PO SCH (10:16)
[2018-08-06] MEDS: Fish Oil 1,000 MG CAP PO SCH (10:16)
[2018-08-06] MEDS: Heparin 5,000 UNITS/ML VIAL SC SCH (10:17)
--- NOTE | 2018-08-06 10:18 | PRG ---
DATE OF SERVICE: 08/06/2018 SUBJECTIVE: This morning, he is much better. Less cough, less shortness of breath. He has had cough for several days. Did not get his prednisone, that is why he had to come to the hospital. I did not see much of a chest x-ray showing any infiltrates. OBJECTIVE: VITAL SIGNS: His saturations are 94 on room air, respiratory rate 18, temperature 98, and blood pressure 171/84. CHEST: No wheezing. CARDIAC: Normal S1 and S2. No gallops or masses. Renal function improved. White count 12,000. IMPRESSION: Asthmatic bronchitis; azotemia, prerenal. PLAN: Planning for discharge home. Prescription of prednisone was given. I will be seeing him in the office in about a month. Job ID: [id number]
[2018-08-06 12:31] VITALS: BP 133/88; TEMP 98
--- NOTE | 2018-08-06 17:05 | DIS ---
DATE OF ADMISSION: 08/03/2018 DATE OF DISCHARGE: 08/06/2018 PRIMARY CARE PROVIDER: Chuck Rodriguez MD DISCHARGE DIAGNOSES: 1. Sepsis. 2. Acute bronchitis. 3. Acute kidney injury. CONSULTATIONS DURING THIS HOSPITALIZATION: 1. Nephrology, Dr. Lipscomb. 2. Pulmonology, Dr. Garcia. DISCHARGE MEDICATIONS: The patient has been given a prescription for prednisone by Pulmonary Service. He is being discharged home on; 1. Allopurinol 300 mg daily. 2. Atorvastatin 80 mg daily. 3. Calcium carbonate 600 mg daily. 4. Coreg 6.25 mg 2 times a day. 5. Vitamin D3 of 1000 units daily. 6. Plavix 75 mg daily. 7. Ezetimibe 10 mg at bedtime. 8. Fish oil 1000 mg daily. 9. Advair Diskus 250/50 one puff as needed. 10. Glucosamine 500 mg daily. 11. Florajen 460 mg daily. 12. Magnesium 400 mg daily. 13. Sotalol 80 mg 2 times a day. 14. Flomax 0.4 mg daily. 15. Coenzyme Q10 of 100 mg daily. 16. Cefdinir 300 mg 2 times a day for 7 more days. HOSPITAL COURSE: Mr. Javier is a pleasant 88-year-old gentleman, who was admitted to [facility] on August 03, 2018, for sepsis secondary to acute bronchitis. Please refer to Dr. Lu's history and physical note dated August 03, 2018, for further details. He also had acute kidney injury at the time of admission. He was treated with oxygen, steroids, bronchodilators, and antibiotics. He improved clinically. He was seen by Pulmonary and Nephrology Services. Acute kidney injury, resolved. I assessed Mr. Javier on the day of discharge. He denies any chest pain or shortness of breath. Vital signs are stable. S1 and S2 are heard, regular. Lungs are clear to auscultation bilaterally. On the day of discharge, he has white count of 12,600, hemoglobin 10.9, and platelet count 188,000. Sodium 137, potassium 3.8, and creatinine 0.94. Many thanks for allowing me to participate in your patient's care. Please feel free to contact me with any questions or concerns. DISCHARGE DESTINATION: Home. TOTAL AMOUNT OF TIME SPENT COORDINATING THIS DISCHARGE: 32 minutes. Job ID: [id number]
[2018-08-07 02:12] LABS: Mycoplasma pneumoniae IgG AB 1513 U/mL (0-99); Mycoplasma pneumoniae IgM AB Less than 770 U/mL (0-769)
== END 2018-08-06 13:43 | disposition home or self-care (01) | DRG 871 ==
LOC: ERS 22:20 → 2NO 08-03 01:56
PROVIDERS: ADMIT Internal Medicine; ATTEND Internal Medicine
DX: A41.9 Sepsis, unspecified organism (principal); J18.9 Pneumonia, unspecified organism; I50.23 Acute on chronic systolic (congestive) heart failure; N17.9 Acute kidney failure, unspecified; J93.9 Pneumothorax, unspecified; I13.0 Hypertensive heart and chronic kidney disease with heart failure and stage 1 through stage 4 chronic kidney disease, or unspecified chronic kidney disease; J44.9 Chronic obstructive pulmonary disease, unspecified; I25.10 Atherosclerotic heart disease of native coronary artery without angina pectoris; Z85.46 Personal history of malignant neoplasm of prostate; Z95.810 Presence of automatic (implantable) cardiac defibrillator; N40.0 Benign prostatic hyperplasia without lower urinary tract symptoms; Z92.3 Personal history of irradiation; J45.909 Unspecified asthma, uncomplicated; Z95.1 Presence of aortocoronary bypass graft; Z87.891 Personal history of nicotine dependence; Z79.899 Other long term (current) drug therapy; Z79.02 Long term (current) use of antithrombotics/antiplatelets; E86.0 Dehydration; N18.3 Chronic kidney disease, stage 3 (moderate); R33.9 Retention of urine, unspecified; J20.9 Acute bronchitis, unspecified; G47.33 Obstructive sleep apnea (adult) (pediatric)
CPT/HCPCS: 36415; 80048; 80069; 84145; 85025; 94640; 96361; 96365; 96374; J0456; J0696; J1644; J2920; J2930; J3370; J7050; J7506; J7620; S0028

== ENCOUNTER 2019-10-20 13:43 | Inpatient (IN) | payer MEDICARE ==
[2019-10-20] MEDS ORDERED: Pantoprazole 40 MG VIAL ONE (14:26)
[2019-10-20] MEDS ORDERED: Pantoprazole 80 MG in Sodium Chloride 0.9% 100 ML IVP SCH (14:30)
[2019-10-20 14:36] LABS: #Basophils 0.1 thou/uL (0.0-0.2); #Eosinphils 0.5 thou/uL (0.0-0.7); #Lymphocytes 1.4 thou/uL (1.20-3.40); #Monocytes 0.5 thou/uL (0.11-0.59); #Neutrophils 5.3 thou/uL (1.40-6.50); %Basophils 0.8 % (0.0-1.0); %Eosinophils 6.9 % (0.0-10.0); %Lymphocytes 18.2 % (21.0-51.0); %Monocytes 6.6 % (0.0-10.0); %Neutrophils 67.4 % (42.0-75.0); Hemoglobin 9.1 g/dL (14.0-18.0); Mean Corpuscular HGB CONC 33.6 g/dL (32.0-36.0); Mean Corpuscular Hemoglobin 32.9 pg (27.0-31.0); Mean Platelet Volume 9.3 fL (7.4-10.4); Platelet Count 157 thou/uL (130-400); RBC Distribution Width 14.6 % (11.5-14.5); Red Blood Cell (RBC) Count 2.77 mill/uL (4.70-6.10); White Blood Cell (WBC) Count 7.9 thou/uL (4.8-10.8)
[2019-10-20 14:43] LABS: INR-International Normal Ratio 1.2; PTT 29.4 SEC (22.9-36.1); Prothrombin Time 15.4 SEC (12.0-14.7)
[2019-10-20 14:58] LABS: ALT (SGPT) 7 U/L (8-55); AST (SGOT) 14 U/L (5-34); Albumin 3.2 g/dL (3.4-4.8); Alkaline Phosphatase 45 U/L (40-110); Anion Gap 11 mmol/L (10-20); BUN (Urea Nitrogen) 43 mg/dL (8.4-25.7); Bilirubin, Total 0.7 mg/dL (0.2-1.2); Calc. Creatinine Clearance 0 mL/min (70-130); Calcium 8.8 mg/dL (7.8-10.44); Carbon Dioxide 28 mmol/L (23-31); Chloride 105 mmol/L (98-107); Estimated GFR-MDRD 55; Globulin 2.3 g/dL (2.4-3.5); Glucose 106 mg/dL (83-110); Potassium 5.4 mmol/L (3.5-5.1); Protein, Total 5.5 g/dL (5.8-8.1); Sodium 139 mmol/L (136-145)
[2019-10-20] MEDS ORDERED: Acetaminophen 500 MG TAB PO PRN (17:36)
[2019-10-20] MEDS ORDERED: Ondansetron ODT 4 MG TAB PO PRN (17:36)
[2019-10-20] MEDS ORDERED: Pantoprazole 80 MG in Sodium Chloride 0.9% 100 ML IVPB SCH (17:36)
[2019-10-20] MEDS ORDERED: Ondansetron PF 4 MG/2 ML Vial IVP PRN (17:36)
--- NOTE | 2019-10-20 19:28 | CON ---
DATE OF CONSULTATION: 10/20/2019 REQUESTING PHYSICIAN: Dr. Langford. REASON FOR CONSULTATION: GI bleeding. HISTORY OF PRESENT ILLNESS: Nnamdi Javier is a very pleasant 89-year-old man, who has previously seen my colleague, Dr. Sellers. Mr. Javier has a history of coronary artery disease status post CABG. He has a pacemaker and AICD in place. He has had prostate cancer radiation in the past. In 2008, he had severe diverticulitis with perforation and underwent colostomy. This was reversed in 2009 after a colonoscopy with Dr. Sellers, he had a couple of small colon polyps removed. He declined any further colon surveillance since that time. He has no chronic gastrointestinal symptoms. It appears his baseline hemoglobin is somewhere between 10 and 11. He does take Plavix, but no longer takes aspirin. His reports that for about a week, he has been feeling fatigued, low of energy, and has some generalized decline. He also has noticed that his stools have been dark, but he does not really think that they have been jet black in color, but then this morning he was acutely nauseated and he had emesis of very dark liquid, which had a taste and appearance of blood. This prompted presentation to the Emergency Department. Initial blood pressures were a little bit soft in the 90s systolic, but he was not tachycardic. Hemoglobin is 9.1, BUN elevated to 43 with some fluid resuscitation. His blood pressure has picked up. He has remained hemodynamically stable. He has not had any further emesis since this morning. Rectal exam was performed and the stool was heme-positive. He was started on Protonix drip. The plan is to admit him to the intermediate care unit. We are consulted for the bleeding. The patient does take Advil [id number] maybe a couple of times per week. REVIEW OF SYSTEMS: Full review of systems including constitutional, head, eyes, ears, nose, throat, GI, , cardiovascular, respiratory, musculoskeletal, and neurologic systems are negative except as noted in the HPI. PAST MEDICAL HISTORY: Hernia, coronary artery disease status post CABG, pacemaker/AICD placement, hypertension, prostate cancer status post radiation therapy, asthma, urinary tract infection, back surgery, perforated diverticulitis in 2008 with colostomy, colostomy reversal in 2009, and colonoscopy 2009 showing a couple of small colon polyps. ALLERGIES: NO KNOWN DRUG ALLERGIES. MEDICATIONS: 1. Sotalol. 2. Coreg. 3. Allopurinol. 4. Plavix 75 mg daily. 5. Flomax. 6. Atorvastatin. 7. Zetia. 8. Calcium. 9. Coenzyme Q10. 10. Glucosamine. 11. Magnesium. 12. Vitamin D3. SOCIAL HISTORY: He is a former smoker. Alcohol use is social. No drug use. FAMILY HISTORY: Noncontributory. PHYSICAL EXAMINATION: VITAL SIGNS: Temperature 97.7, blood pressure 119/70, pulse 70, and 95% oxygen saturation on room air. GENERAL: An 89-year-old man, sitting up in bed comfortably, in no acute distress. SKIN: He is pale. No jaundice. No rashes were palpable. HEENT: Eyes, no scleral icterus. Extraocular movements intact. ENT, mucous membranes moist. No oral lesions. LYMPH: No submandibular or supraclavicular lymphadenopathy. THYROID: Nontender to palpation. HEART: Regular rate and rhythm. LUNGS: Clear to auscultation bilaterally. ABDOMEN: Bowel sounds present. Soft and nontender to palpation throughout. No masses or organomegaly appreciated. EXTREMITIES: No peripheral edema. VESSELS: Radial pulses 2+ bilaterally. NEURO: Cranial nerves 2 through 12 intact bilaterally. No focal deficits. LABORATORY STUDIES: Hemoglobin 9.1, MCV 98, WBC 7.9, and platelets 157. INR 1.2. Sodium 139, potassium 5.4, BUN 43, creatinine 1.25, albumin 3.2, total bilirubin 0.7, alkaline phosphatase 45, AST 14, and ALT 7. FOBT is positive. ASSESSMENT AND PLAN: 1. Hematemesis, single episode. 2. Melena. 3. Heme-positive stool. 4. Acute on chronic blood-loss anemia. The patient's presentation seems consistent with subacute upper gastrointestinal bleeding. He has elevated BUN out of proportion to the creatinine with a recent decline in hemoglobin and what probably did indeed represent hematemesis. He is currently hemodynamically stable. He has been appropriately started on Protonix drip, which should be continued. He is to remain n.p.o. for now. We are going to plan on diagnostic esophagogastroduodenoscopy tomorrow morning. Please feel free to call at any time if the patient has any change or deterioration in clinical status or if there is concern for more brisk bleeding. We could always call in the OR team to perform the procedure more emergently if needed. Thank you for the consultation. Please call back anytime with questions or concerns. Job ID: [id number]
[2019-10-20 20:43] VITALS: BMI 26.9
--- NOTE | 2019-10-20 21:23 | HP ---
PRIMARY CARE PHYSICIAN: Chuck Rodriguez MD CHIEF COMPLAINT: Lightheadedness and emesis. HISTORY OF PRESENT ILLNESS: This is an 89-year-old male, who presents to [facility] Emergency Department in transfer by EMS personnel after they were notified by the after the patient apparently became lightheaded and almost passed out at home. The patient was seated on a bar stool in the kitchen when he became lightheaded and unresponsive. The helped him to the floor and denied any head trauma or antwan loss of consciousness. The patient apparently then had a single episode of bright red colored emesis while on the floor. The patient looked pale and listless according to the , at which point, she notified EMS. The reports she has noticed her being listless and generally less energetic over the last week and the patient reports history of dark stools, which he attributed to eating chocolate. The patient does admit to long-standing Plavix use and has been taking this consistently up until this episode. The patient denied any new medication exposure, travel history, diarrhea, fever, chills, or family members with similar symptoms. The patient does admit to history of diverticulitis, which culminated into a perforated diverticulum with peritonitis. The patient denies any previous history of upper endoscopy or EGD evaluation and believes his last colonoscopy was over 10 years prior to this evaluation. In the emergency room, the patient underwent general evaluation and was noted with hypotension with systolics in the mid 90 range. Stool guaiac was positive and initial hemoglobin noted at 9.1, previously 10.9 on 10/02/2018. The patient was placed on Protonix infusion and given IV fluids. The patient was transferred to the Hospitalist Service for further evaluation. PAST MEDICAL HISTORY: 1. Coronary artery disease. 2. Benign prostatic hyperplasia. 3. Hypertension. 4. Prostate carcinoma, status post radiation. 5. History of asthma. 6. History of urinary tract infections. 7. Perforated diverticulum with peritonitis, status post colostomy with reversal. 8. Degenerative joint disease, status post back surgery. PAST SURGICAL HISTORY: 1. Status post AICD placement. 2. Status post coronary artery bypass grafting x1 vessel. 3. Status post radiation therapy for prostate carcinoma. 4. Status post colostomy with reversal. CURRENT MEDICATIONS: List reviewed with previous records in 2018. 1. Lipitor 80 mg p.o. daily. 2. Allopurinol 300 mg p.o. daily. 3. Coreg 6.25 mg p.o. b.i.d. 4. Plavix 75 mg p.o. daily. 5. Vitamin D3 1000 units p.o. daily. 6. Zetia 10 mg p.o. at bedtime. 7. [place]-3 fatty acids 1000 mg p.o. daily. 8. Sotalol 80 mg p.o. b.i.d. 9. Flomax 0.4 mg p.o. daily. 10. Coenzyme Q10 100 mg p.o. daily. ALLERGIES: TO PECANS AND RAGWEED. FAMILY HISTORY: No inheritable diseases per patient report. SOCIAL HISTORY: The patient is . Resides in the [facility]. Retired. Occasional alcohol use socially. No tobacco or illicit drug use. Functional of all activities of daily living. Accompanied by his in the emergency room. REVIEW OF SYSTEMS: CONSTITUTIONAL: Negative for weight loss or gain, ability to conduct usual activities. SKIN: Negative for rash, itching. EYES: Negative for double vision, pain. ENT/MOUTH: Negative for nose bleeding, neck stiffness, pain, tenderness. CARDIOVASCULAR: Negative for palpitations, dyspnea on exertion, orthopnea. RESPIRATORY: Negative for shortness of breath, wheezing, cough, hemoptysis, fever or night sweats. GASTROINTESTINAL: Negative for poor appetite, abdominal pain, heartburn, nausea, vomiting, constipation, or diarrhea. GENITOURINARY: Negative for urgency, frequency, dysuria, nocturia. MUSCULOSKELETAL: Negative for pain, swelling. NEUROLOGIC/PSYCHIATRIC: Negative for anxiety, depression. ALLERGY/IMMUNOLOGIC: Negative for skin rash, bleeding tendency. Otherwise negative except as stated per HPI. PHYSICAL EXAMINATION: VITAL SIGNS: On admission, blood pressure 91/55, pulse is 70, respiratory rate 20, temperature 97.7 degrees Fahrenheit, O2 saturation 94% on room air. GENERAL APPEARANCE: This is an 89-year-old male, alert and responsive, pale appearing, in no acute distress. HEENT: Pupils are equal, round, reactive to light and accommodation. Extraocular muscles are intact. Bilateral pale conjunctiva. Nares patent. OP is clear. Oral mucosa dry. NECK: Supple. No cervical adenopathy. No thyromegaly. No carotid bruits. No JVD appreciated. Cervical spine with full active and passive range of motion. No meningeal signs noted. CHEST: Lungs are clear to auscultation bilaterally. CARDIOVASCULAR: S1 and S2 with distant heart sounds. No murmur, rub, or gallop appreciated. Left upper chest wall with pacemaker device in place. ABDOMEN: Rounded with large hernia noted. Bowel sounds are positive in all 4 quadrants. No rebound or guarding appreciated. EXTREMITIES: Warm and dry with fair turgor. Pitting edema to the mid shins bilaterally, most notable at the ankle region. Pulses are diminished, but palpable distally at the dorsalis pedis, posterior tibial, and popliteal arteries bilaterally. Capillary refill less than 2 seconds. NEUROLOGIC: Cranial nerves 2 through 12 are grossly intact. No focal or lateralizing signs appreciated. The patient not observed ambulatory during this exam. SKIN: Shows generalized pale discoloration. PERTINENT LABORATORY AND X-RAY FINDINGS: Sodium 139, potassium 5.4, chloride 105, CO2 of 28, BUN 43, creatinine 1.25. Estimated GFR 55, glucose 106, calcium 8.8. LFTs within normal limits. Albumin 3.2. CBC showed a white blood cell count of 7.9, hemoglobin 9.1, hematocrit 27.1, MCV 98, platelet count 157 with normal differential. PT 15.4, INR 1.2, and PTT 29.4. Stool Hemoccult positive x1 10/20/2019. ASSESSMENT AND PLAN: 1. Acute upper gastrointestinal bleed. The patient will be admitted to the intermediate care unit. We will continue intravenous normal saline at 75 mL/h. N.p.o. status except for medications and ice chips. Continue Protonix infusion at 8 mg/hour. Hold all anticoagulation and NSAIDs. Consult GI Service for evaluation and EGD. Serial H and H monitoring. 2. Acute blood loss anemia secondary to #1. See #1 above for evaluation. Serial H and H monitoring. Continue Protonix infusion. 3. Hypotension. Suspect secondary to #1. We will continue IV fluids as outlined previously. Hold all antihypertensive medications. Serial blood pressure monitoring. 4. Near syncope secondary to #1. See #1 above for management. PT evaluation in the a.m. for functional assessment. 5. Chronic kidney disease, stage 3. Avoid nephrotoxic agents and limit contrast exposure. Serial creatinine monitoring. Continue IV fluids as outlined in #1. 6. Prophylaxis. SCDs while in bed. Avoid anticoagulation for DVT prophylaxis. PT evaluation in the a.m.. CODE STATUS: Full. Surrogate medical decision maker is the patient's spouse. Job ID: [id number]
[2019-10-20 21:26] LABS: Hemoglobin 8.7 g/dL (14.0-18.0); Platelet Count 147 thou/uL (130-400)
[2019-10-21 04:38] LABS: Anion Gap 10 mmol/L (10-20); BUN (Urea Nitrogen) 43 mg/dL (8.4-25.7); Calc. Creatinine Clearance 52 mL/min (70-130); Calcium 8.8 mg/dL (7.8-10.44); Carbon Dioxide 25 mmol/L (23-31); Chloride 108 mmol/L (98-107); Estimated GFR-MDRD 58; Glucose 81 mg/dL (83-110); Potassium 4.4 mmol/L (3.5-5.1); Sodium 139 mmol/L (136-145)
[2019-10-21] MEDS: Sodium Chloride 0.9% 1,000 ML IV SCH ×4 (05:02→14:19)
[2019-10-21 05:19] LABS: Band 2 % (5-11); Eosinophils 2 % (0-10); Hemoglobin 7.9 g/dL (14.0-18.0); Lymphocytes 27 % (21-51); MDiff Complete? YES; Mean Corpuscular HGB CONC 33.4 g/dL (32.0-36.0); Mean Corpuscular Hemoglobin 32.8 pg (27.0-31.0); Mean Corpuscular Volume 98.2 fL (78.0-98.0); Mean Platelet Volume 9.9 fL (7.4-10.4); Monocytes 4 % (0-10); Neutrophil 65 % (42-75); Platelet Count 143 thou/uL (130-400); RBC Distribution Width 14.8 % (11.5-14.5)
[2019-10-21] MEDS ORDERED: PROPOFOL 200 MG/20 ML VIAL ONE (09:46)
--- NOTE | 2019-10-21 09:56 | OP ---
DATE OF PROCEDURE: 10/21/2019 METAL SPRAYER MACHINED PARTS SURGEON: None. PROCEDURE PERFORMED: Esophagogastroduodenoscopy, diagnostic. INDICATIONS: 1. Hematemesis. 2. Melena. 3. Acute blood loss anemia. MEDICATIONS: See Anesthesia record. FINDINGS: After discussion of the risks, benefits, and alternatives of the procedure, informed consent was obtained and witnessed. Pre-endoscopic cardiopulmonary examination was satisfactory. Time-out was performed before sedation was achieved. Sedation was achieved with Anesthesia assistance in the endoscopy unit. A Pentax adult therapeutic upper endoscope was placed into the oropharynx and passed through the cricopharyngeus under direct visualization. The esophageal mucosa appeared normal throughout with a normal-appearing Z-line. The endoscope was advanced into the stomach. Forward and retroflexed views of the entire gastric mucosa were obtained. There was a small hiatal hernia. There is some patchy mild erythema throughout the distal gastric body and antrum, but there is no evidence of any erosions or ulcerations in the stomach. There is no evidence of any old blood or active bleeding in the stomach. The patient has a J-shaped stomach and advancement beyond the pylorus was somewhat difficult because of this, however, this was able to be accomplished. In the duodenal bulb, there is a large deep ulcer. There is a lot of surrounding erythema and edema throughout the entire duodenal bulb as well as just around the duodenal sweep, but no other ulceration noted. This ulcer has a clean base, with no visible vessel or red spots. There is no active hemorrhage. The upper endoscope was completely withdrawn and the patient allowed to recover. The patient tolerated the procedure well. There were no immediate postprocedure complications. IMPRESSION: 1. Large deep duodenal bulb ulcer with clean base, no active hemorrhage. 2. Duodenitis in the first and second portions of the duodenum. 3. Mild gastric antral erythema. 4. Small hiatal hernia. RECOMMENDATIONS: 1. Continue the IV proton pump inhibitor for 48 hours, then switch to twice daily oral dosing thereafter. 2. Stop all nonsteroidal anti-inflammatory drugs. 3. Check H pylori serology with tomorrow morning's labs. 4. Advance diet. Job ID: [id number]
[2019-10-21] MEDS ORDERED: Pantoprazole 80 MG, Admixture Fee 1 EACH in Sodium Chloride 0.9% 100 ML IVPB SCH (10:00)
--- NOTE | 2019-10-21 13:46 | PDOC.HOSPP ---
- Subjective Encounter Date: 10/21/19 Encounter Time: 13:40 Subjective: f/u for GI bleed with EGD showing duodenal ulcer without active bleeding at the time of the study. Remains on PPI IV and IVF's. States feeling better overall. - Objective Vital Signs & Weight: Vital Signs (12 hours) Temp Pulse Pulse Resp BP BP Pulse Ox 10/21/19 11:28 70 138/62 10/21/19 09:42 97.0 F L 91 18 141/63 H 97 10/21/19 03:00 98.6 F 68 18 117/58 L 96 Weight Weight 184 lb 11.2 oz Result Diagrams: 10/21/19 03:45 10/21/19 03:45 Additional Labs: Microbiology 10/20/19 14:30 Stool - Pending Stool Occult Blood (VEGA) - Final Laboratory Tests 10/20/19 10/20/19 10/20/19 14:27 14:27 21:07 Hgb 9.1 L 8.7 L Potassium 5.4 H BUN 43 H Creatinine 1.25 EKG Reviewed by me: Yes (Tele - SR and paced) Hospitalist ROS - Medication Medications: Active Medications Generic Name Dose Route Start Last Admin Trade Name Freq PRN Reason Stop Dose Admin Sodium Chloride 1,000 mls @ 75 mls/hr 10/20/19 17:36 10/21/19 05:05 Normal Saline 0.9% IV 1,000 mls .[id number] SABAS Administration Pantoprazole Sodium 80 mg/ 100 mls @ 10 mls/hr 10/21/19 10:00 10/21/19 11:17 Miscellaneous Medication 1 IVPB 100 mls each/ Sodium Chloride INF SABAS Administration - Exam General Appearance: NAD, awake alert Eye: PERRL, anicteric sclera ENT: normocephalic atraumatic, no oropharyngeal lesions Neck: supple, symmetric, no JVD, no thyromegaly Heart: RRR, no gallops, no rubs, normal peripheral pulses Respiratory: CTAB, no wheezes, no rales, no ronchi Gastrointestinal: soft, non-tender, non-distended, normal bowel sounds, no palpable masses Extremities: no cyanosis, no clubbing Skin: normal turgor, no lesions Neurological: cranial nerve grossly intact, no new deficit Musculoskeletal: normal tone, generalized weakness Psychiatric: normal affect, A&O x 3 Hosp A/P (1) Upper GI bleed Code(s): K92.2 - GASTROINTESTINAL HEMORRHAGE, UNSPECIFIED Status: Acute Plan: Secondary to duodenal ulcer, continue PPI, avoid NSAIDs and hold Plavix (2) Acute blood loss anemia Code(s): D62 - ACUTE POSTHEMORRHAGIC ANEMIA Status: Acute Plan: Stable currently, serial H/H, see #1 above (3) Hypotension Status: Acute Plan: Secondary to #1, stable currently, avoid antihypertensives (4) Near syncope Status: Acute Plan: Secondary to #1, stable currently, PT for ambulation - Plan plan discussed w/ family, PT/OT, protective services social worker, out of bed/ambulate, DVT proph w/SCDs Stable currently Continue PPI Continue IVF's another 24h OOB with PT AM lab: BMP, CBC Likely home in am
[2019-10-21] MEDS: Mometasone/Formoterol 120 PUFF INHALER INH SCH (19:30)
[2019-10-21] MEDS: Sotalol HCl 80 MG TAB PO SCH (20:43)
[2019-10-22 04:13] LABS: Anion Gap 12 mmol/L (10-20); BUN (Urea Nitrogen) 36 mg/dL (8.4-25.7); Calc. Creatinine Clearance 54 mL/min (70-130); Calcium 8.7 mg/dL (7.8-10.44); Carbon Dioxide 23 mmol/L (23-31); Chloride 109 mmol/L (98-107); Estimated GFR-MDRD 61; Glucose 135 mg/dL (83-110); Potassium 4.1 mmol/L (3.5-5.1); Sodium 140 mmol/L (136-145)
[2019-10-22 06:51] LABS: Hemoglobin 8.2 g/dL (14.0-18.0); Mean Corpuscular HGB CONC 32.8 g/dL (32.0-36.0); Mean Corpuscular Hemoglobin 32.4 pg (27.0-31.0); Mean Corpuscular Volume 98.7 fL (78.0-98.0); Mean Platelet Volume 9.5 fL (7.4-10.4); Platelet Count 144 thou/uL (130-400); RBC Distribution Width 14.8 % (11.5-14.5); Red Blood Cell (RBC) Count 2.52 mill/uL (4.70-6.10); White Blood Cell (WBC) Count 17.8 thou/uL (4.8-10.8)
[2019-10-22 06:53] LABS: Anisocytosis SLIGHT = 6-15 cells (100X) (0-5/hpf); Band 21 % (5-11); Lymphocytes 5 % (21-51); MDiff Complete? YES; Monocytes 5 % (0-10); Neutrophil 69 % (42-75)
[2019-10-22] MEDS: Mometasone/Formoterol 120 PUFF INHALER INH SCH ×2 (07:57→18:13)
[2019-10-22] MEDS: Sodium Chloride 0.9% 1,000 ML IV SCH (09:33)
[2019-10-22] MEDS: Tamsulosin HCl 0.4 MG CAP PO SCH (09:34)
[2019-10-22] MEDS: Sotalol HCl 80 MG TAB PO SCH ×2 (09:34→20:49)
[2019-10-22] MEDS: Allopurinol 300 MG TAB PO SCH (09:34)
[2019-10-22] MEDS: Magnesium Oxide 400 MG TAB PO SCH (09:34)
--- NOTE | 2019-10-22 09:46 | PDOC.HOSPP ---
- Subjective Encounter Date: 10/22/19 Encounter Time: 09:30 Subjective: f/u for GI bleed due to duodenal ulcer on Protonix gtt. Hemoglobin stable and no recurrent GI bleeding. States slept poorly overall. Tolerated liquid diet this am. - Objective Vital Signs & Weight: Vital Signs (12 hours) Temp Pulse Resp BP Pulse Ox 10/22/19 07:36 98.2 F 99 14 115/56 L 94 L 10/22/19 03:13 97.6 F 78 18 98/53 L 93 L 10/21/19 23:00 70 117/58 L Weight Weight 188 lb 12.8 oz I&O: 10/21/19 10/22/19 10/23/19 06:59 06:59 06:59 Intake Total 1020 Output Total 775 Balance 245 Result Diagrams: 10/22/19 10:13 10/22/19 03:31 Additional Labs: Microbiology 10/20/19 14:30 Stool - Pending Stool Occult Blood (VEGA) - Final Laboratory Tests 10/20/19 10/20/19 10/20/19 14:27 14:27 21:07 WBC Hgb 9.1 L 8.7 L Plt Count Neutrophils % (Manual) Band Neuts % (Manual) Potassium 5.4 H BUN 43 H Creatinine 1.25 10/22/19 03:31 WBC 17.8 H Hgb 8.2 L Plt Count 144 Neutrophils % (Manual) 69 Band Neuts % (Manual) 21 H Potassium BUN Creatinine EKG Reviewed by me: Yes (Tele - Paced, SR) Hospitalist ROS - Medication Medications: Active Medications Generic Name Dose Route Start Last Admin Trade Name Freq PRN Reason Stop Dose Admin Allopurinol 300 mg 10/22/19 09:00 10/22/19 09:34 Zyloprim PO 300 mg DAILY SABAS Administration Magnesium Oxide 400 mg 10/22/19 09:00 10/22/19 09:34 Magnesium Oxide PO 400 mg DAILY SABAS Administration Mometasone Furoate/Formoterol Fumar 2 puff 10/21/19 18:30 10/22/19 07:57 Dulera 200 Mcg/5 Mcg Inhaler INH 2 puff BID-RT SABAS Administration Ondansetron HCl 4 mg 10/20/19 17:36 10/21/19 14:26 Zofran IVP 4 mg Q6H PRN Administration Nausea/Vomiting Sotalol HCl 80 mg 10/21/19 21:00 10/22/19 09:34 Betapace PO Not Given BID SABAS Tamsulosin HCl 0.4 mg 10/22/19 09:00 10/22/19 09:34 Flomax PO 0.4 mg DAILY SABAS Administration - Exam General Appearance: NAD, awake alert Eye: PERRL, anicteric sclera ENT: normocephalic atraumatic, no oropharyngeal lesions Neck: supple, symmetric, no JVD, no thyromegaly Heart: RRR, no gallops, no rubs, normal peripheral pulses Respiratory: CTAB, no wheezes, no rales, no ronchi Gastrointestinal: soft, non-tender, non-distended, normal bowel sounds Extremities: no cyanosis, no clubbing, no edema Skin: normal turgor, no lesions Neurological: cranial nerve grossly intact, no new deficit Musculoskeletal: normal tone, normal strength Psychiatric: normal affect, A&O x 3 Hosp A/P (1) Upper GI bleed Code(s): K92.2 - GASTROINTESTINAL HEMORRHAGE, UNSPECIFIED Status: Acute Plan: Stable currently, continue serial H/H, PPI (2) Acute blood loss anemia Code(s): D62 - ACUTE POSTHEMORRHAGIC ANEMIA Status: Acute (3) Hypotension Status: Acute Plan: Resolving (4) Near syncope Status: Acute - Plan plan discussed w/ family, PT/OT, social work administrator, out of bed/ambulate, DVT proph w/SCDs Stable currently Continue PPI Continue IVF's another 24h OOB with PT AM lab: CBC Likely home in am
[2019-10-22 11:00] LABS: Hemoglobin 7.7 g/dL (14.0-18.0); Mean Corpuscular HGB CONC 32.1 g/dL (32.0-36.0); Mean Corpuscular Hemoglobin 32.1 pg (27.0-31.0); Mean Platelet Volume 9.6 fL (7.4-10.4); Platelet Count 126 thou/uL (130-400); RBC Distribution Width 14.6 % (11.5-14.5); Red Blood Cell (RBC) Count 2.41 mill/uL (4.70-6.10); White Blood Cell (WBC) Count 14.1 thou/uL (4.8-10.8)
[2019-10-22 11:42] LABS: Band 4 % (5-11); Lymphocytes 10 % (21-51); MDiff Complete? YES; Monocytes 7 % (0-10); Neutrophil 79 % (42-75); Ovalocytes SLIGHT = 2-5 cells (100X) (0-1/hpf); Platelet Morphology Comment Appears Decreased; Polychromasia SLIGHT = 2-3 cells (100X) (0-2/hpf)
[2019-10-23 05:32] LABS: Band 5 % (5-11); Eosinophils 4 % (0-10); Hemoglobin 7.1 g/dL (14.0-18.0); Lymphocytes 16 % (21-51); MDiff Complete? YES; Mean Corpuscular HGB CONC 33.1 g/dL (32.0-36.0); Mean Corpuscular Hemoglobin 32.9 pg (27.0-31.0); Mean Corpuscular Volume 99.5 fL (78.0-98.0); Mean Platelet Volume 9.7 fL (7.4-10.4); Monocytes 7 % (0-10); Neutrophil 68 % (42-75); Platelet Count 127 thou/uL (130-400); RBC Distribution Width 14.6 % (11.5-14.5); Red Blood Cell (RBC) Count 2.15 mill/uL (4.70-6.10); White Blood Cell (WBC) Count 7.8 thou/uL (4.8-10.8)
[2019-10-23] MEDS: Mometasone/Formoterol 120 PUFF INHALER INH SCH (07:47)
[2019-10-23] MEDS: Tamsulosin HCl 0.4 MG CAP PO SCH (09:06)
[2019-10-23] MEDS: Allopurinol 300 MG TAB PO SCH (09:06)
[2019-10-23] MEDS: Sotalol HCl 80 MG TAB PO SCH (09:06)
[2019-10-23] MEDS: Magnesium Oxide 400 MG TAB PO SCH (09:06)
--- NOTE | 2019-10-23 14:49 | DIS ---
DATE OF ADMISSION: 10/20/2019 DATE OF DISCHARGE: 10/23/2019 DISCHARGE DIAGNOSES: 1. Upper gastrointestinal bleed secondarily to duodenal ulcer. 2. Acute blood loss anemia secondary to upper gastrointestinal bleed. 3. Hypotension, resolved. 4. Near syncope secondary to upper gastrointestinal bleed. 5. Hypertension, stable. 6. Chronic kidney disease, stage 3. CONSULTATIONS: Dr. Cheng with GI Service. PERTINENT LABORATORY AND X-RAY FINDINGS: Creatinine ranged between 1.14 to 1.25. Estimated GFR ranged between 55 to 61. LFTs within normal limits. CBC showed a white blood cell count ranging between 7.8 to 17.8, hemoglobin ranged between 7.1 to 9.1. Stool Hemoccult on 10/20/2019, positive x1. EGD dated 10/21/2019 showed large duodenal bulb ulcer without active hemorrhage. Duodenitis in the first and second portions noted. Mild gastric antral erythema. HOSPITAL COURSE: The patient was initially admitted to the telemetry unit after presenting with near-syncope and hematemesis. The patient underwent initial hemoglobin assessment showing a value of 9.1 with hematemesis and treated for upper GI bleed. The patient was placed on IV fluids in addition to Protonix infusion and evaluated by the GI Service. The patient with chronic anticoagulation with Plavix, which was held throughout the entire hospital course. The patient underwent EGD evaluation showing a large duodenal bulb ulcer as well as duodenitis in the first and second portions of the duodenum. The patient continued on Protonix infusion, transitioning to 40 mg IV b.i.d. and held on all anticoagulation and NSAIDs. The patient was slowly introduced to clear liquids, tolerating without decompensation. The patient did not receive packed red blood cells during the hospital course, but remained above 7 on his hemoglobin values throughout the hospital stay. Current recommendations are to continue proton pump inhibitor therapy in addition to iron supplementation with serial outpatient monitoring of hemoglobin. Overall, the patient remained clinically stable during the hospital course with stable vital signs at the time of discharge. I have examined the patient at the time of discharge and discussed followup instructions. The patient verbalized understanding and in agreement and ready for discharge on 10/23/2019. DISCHARGE MEDICATIONS: 1. Allopurinol 300 mg p.o. daily. 2. Lipitor 40 mg p.o. daily. 3. Calcium carbonate 600 mg p.o. daily. 4. Coreg 6.25 mg p.o. b.i.d. 5. Vitamin D3 of 1000 units p.o. daily. 6. Zetia 10 mg p.o. at bedtime. 7. Advair Diskus one inhalation b.i.d. 8. Glucosamine 500 mg p.o. b.i.d. 9. Magnesium oxide 400 mg p.o. daily. 10. Sotalol 80 mg p.o. b.i.d. 11. Flomax 0.4 mg p.o. daily. 12. Coenzyme Q10 of 100 mg p.o. daily. 13. Plavix 75 mg p.o. daily, resume on 10/29/2019. 14. Ferrous sulfate 325 mg p.o. b.i.d. 15. Protonix 40 mg p.o. b.i.d. FOLLOWUP: The patient may follow up with Dr. Chuck Rodriguez within 7 days of discharge. The patient followup with Dr. Ez Cheng with GI Service and to call his office for appointment, time, and date. CONDITION ON DISCHARGE: Fair. ACTIVITY: Ad-apple. DIET: Regular. SPECIAL INSTRUCTIONS: Repeat CBC at the first followup visit. CODE STATUS: Full. DISPOSITION: Home on 10/23/2019. TIME SPENT: Total time preparing and coordinating discharge, 32 minutes. Job ID: [id number]
[2019-10-23 15:56] VITALS: BP 129/60; TEMP 97.4
[2019-10-25 13:14] LABS: H. pylori IgA ABS Less than 9.0 units (0.0-8.9); H. pylori IgG ABS 0.97 (0.00-0.79); H. pylori IgM ABS Less than 9.0 units (0.0-8.9)
== END 2019-10-23 17:08 | disposition home or self-care (01) | DRG 378 ==
LOC: ERS 13:43 → ERHOLD 17:05 → 2NO 20:14
PROVIDERS: ADMIT Family Medicine; ATTEND Family Medicine
PROC: 0DJ08ZZ Inspection of Upper Intestinal Tract, Via Natural or Artificial Opening Endoscopic (ICD-10-PCS; principal; 2019-10-21)
DX: K26.0 Acute duodenal ulcer with hemorrhage (principal); D62 Acute posthemorrhagic anemia; I12.9 Hypertensive chronic kidney disease with stage 1 through stage 4 chronic kidney disease, or unspecified chronic kidney disease; I25.10 Atherosclerotic heart disease of native coronary artery without angina pectoris; I95.9 Hypotension, unspecified; J45.909 Unspecified asthma, uncomplicated; K29.80 Duodenitis without bleeding; K44.9 Diaphragmatic hernia without obstruction or gangrene; N18.3 Chronic kidney disease, stage 3 (moderate); N40.0 Benign prostatic hyperplasia without lower urinary tract symptoms; Z95.1 Presence of aortocoronary bypass graft; Z95.810 Presence of automatic (implantable) cardiac defibrillator; Z85.46 Personal history of malignant neoplasm of prostate; Z87.891 Personal history of nicotine dependence
CPT/HCPCS: 36415; 80048; 80053; 82274; 85007; 85025; 85027; 85610; 85730; 86850; 86900; 86901; 96360; 96365; 96366; C9113; J2405; J2704; J3490

== ENCOUNTER 2020-03-11 11:08 | Observation (INO) | payer MEDICARE ==
--- NOTE | 2020-03-11 11:59 | CT ---
CT BRAIN WITHOUT CONTRAST: Date: 03/11/2020 HISTORY: Syncope. COMPARISON: 11/01/2003. FINDINGS: There are changes of cortical atrophy and chronic small vessel ischemic disease. There is an old infa rction in the right posterior parietooccipital lobe. No evidence of acute infarct, hemorrhage, midlin e shift, or abnormal extra-axial fluid collections are seen. The bony calvarium is intact. There is m ild mucosal disease in the paranasal sinuses. IMPRESSION: No CT evidence of acute intracranial process. POS: [facility]
[2020-03-11 12:15] LABS: ALT (SGPT) 8 U/L (8-55); AST (SGOT) 16 U/L (5-34); Albumin 3.7 g/dL (3.4-4.8); Alkaline Phosphatase 63 U/L (40-110); Anion Gap 13 mmol/L (10-20); BUN (Urea Nitrogen) 20 mg/dL (8.4-25.7); Calc. Creatinine Clearance 0 mL/min (70-130); Calcium 9.3 mg/dL (7.8-10.44); Carbon Dioxide 26 mmol/L (23-31); Chloride 105 mmol/L (98-107); Estimated GFR-MDRD 61; Globulin 2.7 g/dL (2.4-3.5); Glucose 108 mg/dL (83-110); Potassium 4.5 mmol/L (3.5-5.1); Protein, Total 6.4 g/dL (5.8-8.1); Sodium 139 mmol/L (136-145)
[2020-03-11 12:16] LABS: #Basophils 0.1 thou/uL (0.0-0.2); #Eosinphils 0.3 thou/uL (0.0-0.7); #Lymphocytes 1.2 thou/uL (1.20-3.40); #Monocytes 0.5 thou/uL (0.11-0.59); #Neutrophils 4.2 thou/uL (1.40-6.50); %Basophils 0.9 % (0.0-1.0); %Eosinophils 5.3 % (0.0-10.0); %Lymphocytes 18.5 % (21.0-51.0); %Monocytes 7.9 % (0.0-10.0); %Neutrophils 67.3 % (42.0-75.0); Hemoglobin 10.7 g/dL (14.0-18.0); Mean Corpuscular HGB CONC 31.9 g/dL (32.0-36.0); Mean Corpuscular Volume 97.4 fL (78.0-98.0); Mean Platelet Volume 9.5 fL (7.4-10.4); Platelet Count 159 thou/uL (130-400); RBC Distribution Width 15.5 % (11.5-14.5); Red Blood Cell (RBC) Count 3.45 mill/uL (4.70-6.10); White Blood Cell (WBC) Count 6.3 thou/uL (4.8-10.8)
--- NOTE | 2020-03-11 15:11 | PDOC.HHP ---
Hospitalist HPI - History of Present Illness syncope History of Present Illness: THis is an 89 year old male with history of CAD s/p CABG, arrhythmia (skipping every 7th beat per patient), who presented to the ER with a syncopal episode. The patient states that he was waiting in line to get his drivers license when he passed out. The patient believes he passed out because he wore a new mask that was too tight for him and fog was accumulating on his glasses. He denied dizziness, lightheadedness, chest pain, palpitations prior to passing out. He states he probably lost consciousness for about a minute or two. When he woke up , he knew exactly where he was. He had no olfactory or gustatory hallucinations. He had no arm jerking. He denied fevers, chills, cough, nausea , vomiting, diarrhea, blood in stool. THe patient states he saw Dr. Gu on tele-visit three weeks ago and was told he had no problems. He states that his pacemaker hasn't been changed in four years, but was told that the battery would only last two years. He went to a hospital in [place] who transferred him here for evaluation of his pacemaker. EMS found the patient to be hypotensive with BP in the 70's. He was given 1L of fluid and upon arrival to ER here he was normotensive. ED Course: Upon arrival to the ER, the patient was noted to have normal vitals with a BP of 159/95. CT head was unremarkable. Labs showed hemoglobin of 10. BMP was normal. EKG showed junctional rhythm. First troponin was negative. Patient supposedly refused rectal exam. Stool guaiac was done with pending results. Patient was admitted for further workupp. Hospitalist ROS - Review of Systems Constitutional: denies: fever, chills Eyes: denies: pain, vision change ENT: denies: ear discharge Respiratory: denies: cough, dry, shortness of breath Cardiovascular: denies: chest pain, palpitations, orthopnea Gastrointestinal: denies: nausea, vomiting, abdominal pain, diarrhea Genitourinary: denies: dysuria, frequency, incontinence Hospitalist History - Past Medical History Other Medical History: Afib with heart skipping every 7 beats H pylori infection Prostate cancer s/p radiation BPH Hypertension - Past Surgical History Past Surgical History: reports: CABG Other Surgical History: Back surgery Toe surgery Surgery on belly for prostate cancer - Social History Smoking Status: Former smoker (Quit smoking in the 40's) Alcohol: reports: None Drugs: reports: none Living Situation: With Family - Exam General Appearance: NAD, awake alert Eye: PERRL, anicteric sclera ENT: normocephalic atraumatic, no oropharyngeal lesions Neck: no JVD Heart: RRR, no murmur, no gallops, no rubs Respiratory: CTAB, no wheezes, no rales, no ronchi Gastrointestinal: soft, non-tender, non-distended, normal bowel sounds Extremities: no cyanosis, no clubbing, no edema Skin: normal turgor, no lesions, no rashes Neurological: cranial nerve grossly intact, normal sensation to touch, no focal deficits, no new deficit Musculoskeletal: normal tone, normal strength, no muscle wasting Psychiatric: normal affect, normal behavior, A&O x 3 Hospitalist Results - Labs Result Diagrams: 03/11/20 11:43 03/11/20 11:43 Lab results: WBC 6.3 thou/uL (4.8-10.8) 03/11/20 11:43 Hgb 10.7 g/dL (14.0-18.0) L 03/11/20 11:43 Hct 33.6 % (42.0-52.0) L 03/11/20 11:43 MCV 97.4 fL (78.0-98.0) 03/11/20 11:43 Plt Count 159 thou/uL (130-400) 03/11/20 11:43 Neutrophils % 67.3 % (42.0-75.0) 03/11/20 11:43 Sodium 139 mmol/L (136-145) 03/11/20 11:43 Potassium 4.5 mmol/L (3.5-5.1) 03/11/20 11:43 Chloride 105 mmol/L (98-107) 03/11/20 11:43 Carbon Dioxide 26 mmol/L (23-31) 03/11/20 11:43 BUN 20 mg/dL (8.4-25.7) 03/11/20 11:43 Creatinine 1.13 mg/dL (0.7-1.3) 03/11/20 11:43 Glucose 108 mg/dL (83-110) 03/11/20 11:43 Calcium 9.3 mg/dL (7.8-10.44) 03/11/20 11:43 Total Bilirubin 1.0 mg/dL (0.2-1.2) 03/11/20 11:43 AST 16 U/L (5-34) 03/11/20 11:43 ALT 8 U/L (8-55) 03/11/20 11:43 Alkaline Phosphatase 63 U/L (40-110) 03/11/20 11:43 Troponin I Less than 0.010 ng/mL (< 0.028) 03/11/20 11:43 Serum Total Protein 6.4 g/dL (5.8-8.1) 03/11/20 11:43 Albumin 3.7 g/dL (3.4-4.8) 03/11/20 11:43 - EKG Interpretation EKG: accelerated junctional rhythm Hospitalist H&P A/P - Plan Plan: THis is an 89 year old male that presented with syncope Syncope - possibly cardiac related vs orthostatic vs GI bleed? - will monitor on telemetry, trend troponins. EKG showed junctional rhythm. - interrogate pacemaker. Cardiology consult - check stool guaiac given recent admission last hospitalization for bleeding duodenal ulcer - trend CBC Hypertension - continue coreg and sotalol with holding parameters CAD s/p CABG - resume plavix in morning, but hold if hemoglobin drops or positive guaiac BPH - resume flomax DVT prophylaxis: ambulation Code status: full code
--- NOTE | 2020-03-11 15:34 | PDOC.FMACP ---
Advance Care Planning - Note Participants: patient Summary: Advanced Care Planning was discussed. The diagnosis, prognosis and goals of care were discussed. Appropriate forms and documentation to accomplish the goals of care were discussed. All questions were answered. The Palliative Care Team will be engaged to assist with completion of any outstanding forms that are needed. Patient would like to be primary decision maker if he can't. He would like to be full code Time Spent (mins): 30
--- NOTE | 2020-03-11 15:45 | RAD ---
Chest 2 views HISTORY: Syncope. COMPARISON: Earlier one view exam on the same date. FINDINGS: Cardiac silhouette and pulmonary vasculature are unremarkable. Mediastinum is midline with aortic calcification, postoperative changes, and a dual lead left subclavian cardiac electronic device. No confluent airspace consolidation, pneumothorax, or pleural fluid evident. IMPRESSION : No active cardiopulmonary abnormalities are demonstrated.
[2020-03-11 15:55] LABS: Troponin I Less than 0.010 ng/mL (< 0.028)
[2020-03-11 16:52] VITALS: BMI 27.6
[2020-03-11] MEDS: Ferrous Sulfate 325 MG TAB PO SCH (18:23)
[2020-03-11] MEDS ORDERED: Mometasone 200 MCG/Formoterol 5 MCG 120 PUFF INHALER INH PRN (18:30)
--- NOTE | 2020-03-11 19:06 | CON ---
DATE OF CONSULTATION: 03/11/2020 REASON FOR CONSULTATION: Syncope. PRIMARY POLICE PILOT: Dr. Taqueria Gu. HISTORY OF PRESENT ILLNESS: Mr. Javier is a very pleasant 89-year-old white gentleman, who comes to the hospital for syncopal spell. 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 He arrived to the [facility] at 7:30 a.m. He was standing outside for 30 minutes waiting for the [employer] to open which should have opened at 8:00 am. 45 minutes later at about 8:45, he was still standing out there and then he just remembers being woken up on the floor with some arm pain and foot pain. EMS was called and on their arrival, his blood pressure was in the 80s over 60s and he was brought into the hospital for further evaluation and care. Mr. Javier has a history of ischemic cardiomyopathy with last EF was in 2018, his EF was 40-45%. He has an AICD in place for a much lower EF in the past. He does not remember having any therapies delivered in the form of shocks and he has been told every time that he has been interrogated from home remotely that everything looks good. PAST MEDICAL HISTORY: 1. History of diverticulitis. 2. BPH. 3. Thyroid disease. 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 5. Obesity. 6. Hyperlipidemia. 7. Hypertension. 8. History of TIA. 9. Coronary artery disease. 10. Perforated diverticulum with peritonitis, status post colostomy reversal. 11. Prostate carcinoma, status post radiation. PAST SURGICAL HISTORY: 1. AICD placement. 2. Back surgery. 3. Foot surgery. 4. Heart catheterization several years ago. His last OptiVol measurement was done on 02/22 and he was actually on the dry side. He did not have any increase in pressures. 5. CABG x1. 6. Colostomy with reversal. OUTPATIENT MEDICATIONS: 1. Tamsulosin 0.4 mg at bedtime. 2. Sotalol 80 mg b.i.d. 3. Magnesium oxide. 4. Glucosamine 500 mg a day. 5. Advair Diskus. 6. Ezetimibe 10 mg at bedtime. 7. Plavix 75 mg a day. 8. Vitamin D3. 9. Carvedilol 6.25 b.i.d. 10. Calcium carbonate 600 a day. 11. Atorvastatin 40 mg a day. 12. Allopurinol 300 mg a day. ALLERGIES: TO PECAN NUTS AND RAGWEED POLLEN. SOCIAL HISTORY: Former smoker, quit when he was in his 40s, about 50 years ago. No alcohol or drugs. FAMILY HISTORY: Noncontributory. REVIEW OF SYSTEMS: A 12-point review of systems was done and was found to be negative other than stated in history of present illness PHYSICAL EXAMINATION: VITAL SIGNS: Temperature 97.7, pulse 80, respiratory rate 16, sat 93% on room air, blood pressure 145/81. GENERAL: Awake, alert. Oriented x3 in no distress. HEENT: Normocephalic and atraumatic. NECK: Supple. LUNGS: Clear. CARDIOVASCULAR: S1 and S2. No S3 or S4. There is a grade 2/6 systolic murmur at the right upper sternal border. ABDOMEN: Soft. Positive bowel sounds. EXTREMITIES: Trace edema. SKIN: Warm and dry. LABORATORY DATA: Laboratory work was reviewed. CBC with a white count of 6.3, hemoglobin of 10.7, platelet count of 159. Chemistry was completely unremarkable. Troponin is negative x2. Occult blood in stool was done and this was negative. ASSESSMENT AND PLAN: 1. Syncope. 2. History of ischemic cardiomyopathy, last ejection fraction At 40-45% in 2018. 3. Presence of an automatic implantable cardioverter defibrillator. PLAN: 1. Likely cause of syncope was just dehydration with being out there in a very muggy situation with the mask on standing for about 45 minutes to an hour. He was hypotensive when EMS arrived to get him and he was much better after IV fluids were given. 2. We will interrogate AICD to make sure there were no tachy or ranjeet arrhythmias or any therapy delivered. 3. We will get an echocardiogram to re-evaluate LV function, make sure that no major changes happen. 4. No acute coronary syndrome at this time. This episode was likely related to him standing up for a long time. Thank you for letting us to participate in the care of this patient. Dr. Gu, his primary die technician will follow up in the morning. Job ID: [id number]
[2020-03-11 19:46] LABS: Troponin I 0.023 ng/mL (< 0.028)
[2020-03-11] MEDS ORDERED: Atorvastatin Calcium 40 MG TAB PO SCH (21:00)
[2020-03-11] MEDS ORDERED: Carvedilol 6.25 MG TAB PO SCH (21:00)
[2020-03-11] MEDS ORDERED: Ezetimibe 10 MG TAB PO SCH (21:00)
[2020-03-11] MEDS ORDERED: Acetaminophen 325 MG TAB PO PRN (21:08)
[2020-03-11] MEDS: Carvedilol 6.25 MG TAB PO SCH (21:38)
[2020-03-11] MEDS: Sotalol HCl 80 MG TAB PO SCH (21:38)
--- NOTE | 2020-03-12 07:10 | CON ---
DATE OF CONSULTATION: REASON FOR CONSULTATION: Syncope, possibility of GI bleeding. HISTORY OF PRESENT ILLNESS: Mr. 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 Apparently, he passed out briefly. He had no seizure activity. No history of chest pain. No difficulty breathing. He has no history of any loss of bowel control or incontinence. He was taken to the [facility], where he was found to be mildly hypotensive. However, he was transferred here because of history of cardiac arrhythmia, previous pacemaker insertion. In the ER, he was awake, alert, and oriented to time, place, and person. His vital signs were very stable. Blood pressure in the ER was almost 160/93. The patient hospitalized because of syncopal episode. There is no history of any GI bleeding. The patient denies any hematochezia or any dark stool. In fact, when I was in the room, he passed stool and stool was normal in color. The patient has no abdominal pain. No nausea or vomiting. The patient was hospitalized in October of 2019 with hematemesis and underwent EGD by Dr. Ez Cheng. Per operative report by Dr. Cheng, he had a large ulcer in the duodenum, which was nonbleeding. Apparently, he has been treated with antibiotics for Helicobacter pylori infection and also he has been on pantoprazole. Apparently, he saw his nurse practitioner subsequently in Dr. Cheng's office and was told that he is doing well. Apparently, he had some stool testing done, which came back negative for any pathology. The patient has done well over the last several months. The syncopal episode was in sudden onset, not accompanied with any chest pain, any dizziness, or any seizure activity. His CBC shows mild anemia. Hemoglobin 10.7. On last admission in October of 2019, when he had hematemesis , his blood count was as low as 7.7. It has been coming up on slowly since that time. His Chem-7 is also normal. He had no relevant history. MEDICAL ILLNESSES: 1. Coronary artery disease, status post coronary artery bypass graft. 2. Atrial fibrillation. 3. Prostate cancer, status post radiation. 4. Hypertension. 5. Upper GI bleeding in October 2019 and was found to have nonbleeding ulcer in the duodenum. Other medical history includes pacemaker-AICD placement. He has had a urinary tract infection, history of asthma. 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 He had a colonoscopy in 2010, showing a couple of small polyps. ALLERGIES: NONE. SOCIAL HISTORY: He is . Former smoker. Drinks alcohol occasionally. FAMILY HISTORY: Noncontributory. MEDICATION LIST: Reviewed. REVIEW OF SYSTEMS: Ten-point system reviewed. CONSTITUTIONAL: No history any weight loss. Has had good exercise tolerance. Has no weight loss. No fever or chills. HEAD: No chronic headache. Had a syncopal episode today. ENT: No impaired vision. No hearing loss. No sore throat. NECK: No stiffness or limitation in movement. LUNGS: No chronic coughing, hemoptysis, or dyspnea. CARDIOVASCULAR: History of irregular heart rate. No history of any dyspnea, orthopnea, or PND. No chest pain. GI: No abdominal pain. No nausea, no vomiting. : History of frequency of urination. Musculoskeletal, neuroendocrine, and hematological not relevant. PHYSICAL EXAMINATION: GENERAL: He is a very pleasant, elderly, male, appears very comfortable. VITAL SIGNS: He is afebrile. His pulse is 70 and irregular, blood pressure 159/ 95. HEENT: Conjunctivae are clear. NECK: Supple. No adenitis or thyromegaly noted. CARDIOVASCULAR: First and second sounds normal. LUNGS: Clear to auscultation. ABDOMEN: Soft. Abdomen is nondistended. Abdomen is nontender. No organomegaly. No masses. Bowel sounds normal. EXTREMITIES: Reveal no edema. LABORATORY DATA: On admission, CBC with WBC 6300, hemoglobin 10.7, hematocrit 33.6, platelet count 159,000. His Chem-7 has actually normal lytes, BUN is 20, creatinine is 1.13, glucose 108. AST 16, ALT 8, alkaline phosphatase 63. Troponin is less than 0.010. CLINICAL IMPRESSION: 1. An 89-year-old male with history of atrial fibrillation, status post pacemaker-AICD placed in the past. Had syncope while waiting in line to renew his licence. He has no seizure activity. No loss of bowel control. No history of any chest pain or dyspnea. . , His syncope is related to vasovagal attack or due to some cardiac irregularity. 2. No history of GI bleeding as blood count is actually better than last admission. Stool is actually normal color when I was in the room. 3. Coronary artery disease, status post coronary artery bypass graft. 4. Hypertension. 5. BPH. 6. Prostate cancer, status post radiation. 7. History of perforated diverticular disease with colostomy and subsequent takedown in 2009. RECOMMENDATION: 1. Heart healthy diet. 2. He had no sign of bleeding history and his blood count is actually stable at 10.7. He had seen Dr. Cheng before in October of 2019 and had EGD and was found to have an ulcer in the duodenum, nonbleeding. Based on the history, I believe the syncopal episodes are not because acute GI problem. I will await Cardiology input and I will tell Dr. Cheng to see him tomorrow as he saw him about 3 months ago. Job ID: [id number] MTDD
[2020-03-12] MEDS: Ferrous Sulfate 325 MG TAB PO SCH (08:24)
[2020-03-12] MEDS: Carvedilol 6.25 MG TAB PO SCH (08:24)
[2020-03-12] MEDS: Sotalol HCl 80 MG TAB PO SCH (08:26)
[2020-03-12] MEDS ORDERED: Clopidogrel Bisulfate 75 MG TAB PO SCH (09:00)
[2020-03-12] MEDS ORDERED: Ubidecarenone 50 MG CAP PO SCH (09:00)
[2020-03-12] MEDS ORDERED: Cholecalciferol 1,000 UNITS (25 MCG) TAB PO SCH (09:00)
[2020-03-12] MEDS ORDERED: Tamsulosin HCl 0.4 MG CAP PO SCH (09:00)
[2020-03-12] MEDS ORDERED: Magnesium Oxide 400 MG TAB PO SCH (09:00)
[2020-03-12] MEDS ORDERED: Allopurinol 300 MG TAB PO SCH (09:00)
[2020-03-12 09:59] LABS: #Eosinphils 0.4 thou/uL (0.0-0.7); #Lymphocytes 1.3 thou/uL (1.20-3.40); #Monocytes 0.8 thou/uL (0.11-0.59); %Basophils 0.6 % (0.0-1.0); %Lymphocytes 17.4 % (21.0-51.0); %Monocytes 10.5 % (0.0-10.0); %Neutrophils 66.5 % (42.0-75.0); Hemoglobin 10.9 g/dL (14.0-18.0); Mean Corpuscular HGB CONC 31.9 g/dL (32.0-36.0); Mean Corpuscular Hemoglobin 30.8 pg (27.0-31.0); Mean Corpuscular Volume 96.5 fL (78.0-98.0); Mean Platelet Volume 8.7 fL (7.4-10.4); Platelet Count 164 thou/uL (130-400); RBC Distribution Width 15.7 % (11.5-14.5); Red Blood Cell (RBC) Count 3.54 mill/uL (4.70-6.10); White Blood Cell (WBC) Count 7.5 thou/uL (4.8-10.8)
[2020-03-12 10:19] LABS: ALT (SGPT) 8 U/L (8-55); AST (SGOT) 14 U/L (5-34); Alkaline Phosphatase 65 U/L (40-110); Anion Gap 12 mmol/L (10-20); BUN (Urea Nitrogen) 19 mg/dL (8.4-25.7); Bilirubin, Total 1.1 mg/dL (0.2-1.2); Calc. Creatinine Clearance 51 mL/min (70-130); Calcium 9.7 mg/dL (7.8-10.44); Carbon Dioxide 27 mmol/L (23-31); Chloride 104 mmol/L (98-107); Estimated GFR-MDRD 57; Globulin 3.1 g/dL (2.4-3.5); Glucose 88 mg/dL (83-110); Magnesium 1.5 mg/dL (1.6-2.6); Protein, Total 7.1 g/dL (5.8-8.1); Sodium 139 mmol/L (136-145)
[2020-03-12 12:03] VITALS: BP 162/79; TEMP 98
--- NOTE | 2020-03-12 12:44 | RAD ---
RIGHT FOOT 3 VIEWS: Date: 03/12/2020 HISTORY: Right foot pain and swelling. Fall with injury on 03/11/2020. FINDINGS: Postoperative changes are noted involving the first digit with plate and screws transfixing the first MTP joint. Secondary hypertrophic changes at this joint are noted. Degenerative changes are seen at the IP joints of the phalanges. Mild DJD at the MTP and tarsometatar cassie joints. There is deformity involving the head and neck of the fifth metatarsal. This appears to represent old , healed fracture. Acute fracture is not delineated. IMPRESSION: Postoperative and degenerative changes as described. Evidence of old fracture involving the distal fi fth metatarsal. No acute fracture identified. POS: AH
--- NOTE | 2020-03-12 21:44 | DIS ---
DATE OF ADMISSION: 03/11/2020 DATE OF DISCHARGE: 03/12/2020 DISCHARGE DIAGNOSIS: Syncope, possibly secondary to vasovagal episode versus hypotension. CONSULTATIONS: 1. Cardiology with Dr. Gu 2. Dr. Eze Gabriel with EP 3. Dr. Glenn Kennedy with GI. BRIEF HISTORY OF PRESENT ILLNESS: This is an 89-year-old male with a past medical history of recent GI bleed with duodenal ulcer; CAD, status post CABG; questionable arrhythmia, who presented to the emergency room after syncopal episode. 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 The patient reported that he recently started wearing a mask that was too tight for him and thought his syncope was secondary to this. He denied any prodromal symptoms. There was no confusion when the patient woke up. He denied any seizure-like episodes. The patient states that his pacemaker was old and his battery had not been changed in four years. When he presented to the emergency room, he was found to be hypotensive with the blood pressure in the 70s to 80s. He was given 1 L of fluid with improvement. He had a CT scan of his head, which was unremarkable. His lab showed a hemoglobin of 10. His stool guaiac was negative. The patient was admitted for further workup. HOSPITAL COURSE: 1. Syncope: The patient had orthostatics done, which were positive; however, the patient was asymptomatic at the time of orthostatic evaluation. Blood pressure was 183/90 while lying down, then dropped to 155/90 sitting, then 134/64 while standing. He was seen by GI, and the patient's hemoglobin was improved from baseline. Therefore, no further workup was d one. His pacemaker was interrogated and showed no arrhythmias. Cardiology was consulted and performed an echo. Echocardiogram showed an EF of 45% to 50% with no wall motion abnormalities. Dr. Gabriel was consulted and it was thought that his battery does not need to be changed right now and can be changed in the outpatient setting. The patient ambulated in the hallway with no dizziness or lightheadedness. He was discharged and will follow up with his PCP. 2. Right foot swelling: The patient's right foot was noted to be incidentally swollen with some tenderness on the dorsum of the foot. Foot x-ray showed a metatarsal fracture in the fifth toe that was healed. As stated above, the patient was asymptomatic, so he was discharged home with outpatient followup. DISCHARGE PHYSICAL EXAMINATION: VITAL SIGNS: Temperature 98.0, heart rate 71, respiratory rate 16, O2 saturation 98% on room air, and blood pressure 162/79. GENERAL: The patient is alert, awake, and oriented x3. CVS: The patient has a pacemaker present in his left sternal area. He has a regular rate and rhythm with no murmurs, rubs, or gallops. LUNGS: Clear to auscultation bilaterally. ABDOMEN: Positive bowel sounds, soft, nontender, nondistended. EXTREMITIES: No edema. PERTINENT LABORATORY DATA: CBC, 03/12: White count 7.5, hemoglobin 10.9, hematocrit 34.1, and platelet count 164. BMP, 03/12: Normal. LFTs, 03/12: Normal. Troponin I: Less than 0.010 x3. IMAGING DATA: CT brain, 03/11: No acute disease. Chest x-ray, 03/11: No acute disease. Foot x-ray, 03/12: Postop and degenerative changes as described. Evidence of old fracture involving the distal fifth metatarsal. Echo, 03/12: EF is 45% to 50%. Pavo is hypokinetic. Markedly enlarged right atrium size. Mild TR. DISCHARGE MEDICATIONS: All of his home medications were resumed. Please refer to discharge worksheet. DISCHARGE INSTRUCTIONS: The patient to follow up with his PCP in a week. He should also follow up with Dr. Gabriel in 1 week for changing his battery of his pacemaker and follow up with Dr. Gu in a month. Job ID: [id number] MTDD
--- NOTE | 2020-03-17 16:20 | EKG ---
Test Reason : Blood Pressure : / mmHG Vent. Rate : 070 BPM Atrial Rate : 067 BPM P-R Int : 000 ms QRS Dur : 106 ms QT Int : 426 ms P-R-T Axes : 000 -17 019 degrees QTc Int : 460 ms Accelerated Junctional rhythm Low voltage QRS Inferior infarct , age undetermined Abnormal ECG Confirmed by BRET GAMBLE, FRANKLIN Celestin ([id number]), department editor PRITI MELGOZA ([id number]) on 03/17/2020 4:19:22 PM Referred By: Confirmed By:FRANKLIN QUEEN MD
== END 2020-03-12 15:31 | disposition home or self-care (01) ==
LOC: ERS 11:08 → ERHOLD 12:24 → 2NO 16:36
PROVIDERS: ADMIT Internal Medicine; ATTEND Internal Medicine
DX: R55 Syncope and collapse (principal); I25.10 Atherosclerotic heart disease of native coronary artery without angina pectoris; I10 Essential (primary) hypertension; I48.91 Unspecified atrial fibrillation; N40.0 Benign prostatic hyperplasia without lower urinary tract symptoms; M79.89 Other specified soft tissue disorders; K26.9 Duodenal ulcer, unspecified as acute or chronic, without hemorrhage or perforation; E66.9 Obesity, unspecified; Z68.27 Body mass index [BMI] 27.0-27.9, adult; Z79.899 Other long term (current) drug therapy; Z87.891 Personal history of nicotine dependence; Z91.018 Allergy to other foods; Z95.0 Presence of cardiac pacemaker; Z95.1 Presence of aortocoronary bypass graft; Z86.73 Personal history of transient ischemic attack (TIA), and cerebral infarction without residual deficits
CPT/HCPCS: 36415; 70450; 71046; 80053; 82274; 83735; 85025; 93005; 93306; G0378

== ENCOUNTER 2021-01-20 14:17 | Outpatient (CLI) | payer MEDICARE | END 2021-01-20 14:18 | disposition home or self-care (01) | LOC: BICRAD 14:17 | PROVIDERS: ATTEND Nurse Practitioner Family | DX: M47.812 Spondylosis without myelopathy or radiculopathy, cervical region (principal); M43.12 Spondylolisthesis, cervical region; M25.78 Osteophyte, vertebrae | CPT/HCPCS: 72040 ==

== ENCOUNTER 2021-06-23 13:34 | Outpatient (CLI) | payer MEDICARE | END 2021-06-23 13:35 | disposition home or self-care (01) | LOC: BICCT 13:34 | PROVIDERS: ATTEND Specialist | DX: M47.812 Spondylosis without myelopathy or radiculopathy, cervical region (principal); M50.30 Other cervical disc degeneration, unspecified cervical region; M48.02 Spinal stenosis, cervical region | CPT/HCPCS: 72125 ==